=== PATIENT | female | born 1955 | race Caucasian/White ===

== ENCOUNTER 2017-10-29 05:22 | Emergency (ER) | payer OTHER, MEDICAID, SELFPAY ==
[2017-10-29 05:25] VITALS: BP 110/90; PULSE 122; RESP 20; TEMP 37.6; O2SAT 97
--- NOTE | 2017-10-29 05:33 | ED.GENADULT ---
HPI - General Adult General Chief complaint: Abdominal Pain Stated complaint: Swallowed a worm Time Seen by Provider: 10/29/17 05:25 Source: patient Mode of arrival: EMS Limitations: no limitations History of Present Illness HPI narrative: Patient is a 62-year-old female brought in by EMS for concerns of coughing up a worm. Patient states that she was sleeping and woke up coughing and noticed what she thought was a worm on her cheek that came from the back of her throat. Patient states that she has known that she has had worse for some time. She states that ?it is in my bone marrow ?she states that she could feel it in her bone marrow. Has never been treated before for this. No camping. No drinking untreated water. No hiking. Patient did bring the worm in with her. Related Data Home Medications Medication Instructions Recorded Confirmed Aripiprazole (Abilify) 5 mg PO QDAY #0 03/12/10 Bupropion Hydrochloride 150 mg PO BID #0 03/12/10 (Wellbutrin Sr) CLONAZEPAM (Klonopin) 1 mg PO #0 03/12/10 Trazodone Hydrochloride (Trazodone 50 mg PO #0 03/12/10 HCl) [MELOXICAM] 7.5 mg PO QDAY #0 03/12/10 [TOPAMAX] 100 mg PO BID #0 03/12/10 lovastatin 20 mg PO QDAYPM #0 03/12/10 [LOVAZA] 1 gr PO QDAY #0 03/17/10 Previous Rx's Medication Instructions Recorded albendazole 400 mg PO DAILY 3 Days #6 tab 10/29/17 Allergies Allergy/AdvReac Type Severity Reaction Status Date / Time INGREDIENT: NKDA - NO KNOWN Allergy Unknown Uncoded 06/22/17 12:17 DRUG ALLERGIES Review of Systems Cardiovascular Denies chest pain and Denies dyspnea Respiratory Reports cough and Denies dyspnea Gastrointestinal Gastrointestinal: Denies abdominal pain, Denies change in bowel habits, Denies constipation, Denies nausea and Denies vomiting Comments: Has not noticed any worms in her stool Genitourinary Denies hematuria Integumentary/Breasts Denies rash and Denies wounds Neurologic Denies behavioral changes Psychiatric Denies behavioral changes Hematologic/Lymphatic Denies easy bleeding and Denies easy bruising [facility] Surgical History Status post surgery (03/17/10) Status post surgery (03/17/10) Comment: No pertinent past medical or surgical history Exam Const General: cooperative, healthy appearing, comfortable, well developed and well groomed Orientation: alert, awake and oriented x3 Resp Effort & Inspection: normal respiratory effort Auscultation: clear to auscultation bilaterally Cardio Rate: regular rate Rhythm: regular rhythm GI Inspection: non-distended Palpation: soft, No firm and No tender Skin Lesions: no lesions Rashes: no rashes Neuro General: alert, awake and oriented x3 Psych Mood: anxious mood Medical Decision Making MDM Narrative Medical decision making narrative: Patient did bring a small object in with her. Was approximately 1 cm in length. Was slightly reddish in color. I did look at it under a magnifying glass however was unable to definitively say whether not this was a worm, parasite or dried mucus. Patient has a normal exam here in the emergency department. She seems very anxious about this and states that she now has proved that she has been sick. Will send her home on albendazole. She was instructed she needed to contact her primary care doctor for a follow-up. She was given the object back in a specimen cup and was told to take it with her to a primary doctor so that it could be sent to the lab for evaluation. Discharge Plan Departure Instructions: Parasites, Intestinal (Alternative Therapy) Activity Restrictions/Additional Instructions: Take the medication that you were given a prescription for today as directed. Keep the object with you and call your primary care doctor on Tuesday for a follow-up. Take this object into your primary doctor so that it could be sent to the lab for evaluation. Return to the emergency department for any new or worsening symptoms Prescriptions: New albendazole 200 mg tablet 400 mg PO DAILY 3 Days Qty: 6 RF: 0 No Action Aripiprazole (Abilify) 5 mg PO QDAY Qty: 0 RF: 0 lovastatin 20 MG tablet 20 mg PO QDAYPM Qty: 0 RF: 0 Trazodone Hydrochloride (Trazodone HCl) 50 mg PO Qty: 0 RF: 0 [MELOXICAM] 7.5 mg PO QDAY Qty: 0 RF: 0 [TOPAMAX] 100 mg PO BID Qty: 0 RF: 0 Bupropion Hydrochloride (Wellbutrin Sr) 150 mg PO BID Qty: 0 RF: 0 CLONAZEPAM (Klonopin) 1 mg PO Qty: 0 RF: 0 [LOVAZA] 1 gr PO QDAY Qty: 0 RF: 0
[2017-10-29] MEDS: ACETAMINOPHEN 325 MG TABLET 650 MG PO (07:23)
[2017-10-29 08:25] VITALS: BP 111/72; PULSE 105; RESP 20; O2SAT 96
== END 2017-10-29 08:27 | disposition home or self-care (01) ==
PROVIDERS: Emergency Provider Emergency Medicine
DX: B82.9 Intestinal parasitism, unspecified (principal)
CPT/HCPCS: 99282; 99283

== ENCOUNTER 2018-11-18 11:44 | Emergency (ER) | payer OTHER, MEDICAID, SELFPAY ==
[2018-11-18 11:55] VITALS: BP 135/116; PULSE 110; RESP 14; TEMP 36.2; O2SAT 98
--- NOTE | 2018-11-18 12:00 | PC.NURSE ---
pt has two small abrasions, less than 1/2 cm to right elbow, a small broken varicose vein/bruise approx 1 cm to inner right forearm, and a small broken varicose vein/bruise, approx 1.5 cm to left elbow
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
[2018-11-18] MEDS: LORazepam 0.5 MG TABLET 1 MG PO (13:57)
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
[2018-11-18 15:47] VITALS: BP 133/90; PULSE 74; RESP 14; O2SAT 98
== END 2018-11-18 15:51 | disposition home or self-care (01) ==
PROVIDERS: Emergency Provider Nurse Practitioner
DX: S42.024A Nondisplaced fracture of shaft of right clavicle, initial encounter for closed fracture (principal); Y04.2XXA Assault by strike against or bumped into by another person, initial encounter
CPT/HCPCS: 73000; 73070; 99282; 99283

== ENCOUNTER 2020-08-25 08:06 | Observation (INO) | payer OTHER, MEDICAID, SELFPAY ==
[2020-08-25 08:14] VITALS: BP 154/90; PULSE 104; RESP 18; TEMP 36.1; O2SAT 98; BMI 24.6
--- NOTE | 2020-08-25 08:18 | PC.NURSE ---
pt states she was able to squeeze some puss out of her finger today.
--- NOTE | 2020-08-25 08:37 | ED_ITS ---
HPI - Skin/Abscess/Foreign Bdy General Chief complaint: Skin/Abscess/Foreign Body Stated complaint: BLOOD POISONING, BIT BY SOMETHING Time Seen by Provider: 08/25/20 08:32 Source: patient Mode of arrival: Ambulatory Limitations: no limitations History of Present Illness HPI narrative: This is a 65-year-old female who comes in with concern for ?blood poisoning patient states that something bit her finger the night before last. She thinks it may have been a but but she does live with CT. Patient does not recall having a cat scratch or bite. Patient states she noticed some swelling of the finger, she had significant increase in swelling of the finger with a red streak running upper arm. Patient states she was able to express pus out of the site and the swelling had improved in her hand. She had fevers and chills overnight. She did not check her thumb temperature but states she felt very hot. She denies any chest pain or shortness of breath. She denies any nausea or vomiting. She has had a little bit of left upper quadrant discomfort for several days even before this. She denies any diarrhea or constipation. No black or bloody stools. No other GI or urinary symptoms. Patient is able to fu lly flex and extend her finger. No numbness tingling or weakness. She states she has chronic anxiety which she is currently smoking marijuana for. She smokes tobacco daily, 0-2 red drinks per day. No other recreational drugs. Patient is not on any other daily medications. Her allergies are Abilify an aspirin which she states are more side effects and not true allergies. Dr. Sabillon is her PCP. Related Data Home Medications Medication Instructions Recorded Confirmed No Known Home Medications 08/25/20 08/25/20 Allergies Allergy/AdvReac Type Severity Reaction Status Date / Time aripiprazole [From Abilify] AdvReac Severe tremors Verified 08/22/20 11:47 aspirin AdvReac Mild ringing in Verified 08/22/20 11:47 ears Review of Systems Review of Systems ROS Unobtainable: All systems reviewed & are unremarkable except as noted in HPI and below Patient History Medical History Anxiety Social History household members: family Smoking Status: Current every day smoker Tobacco: How many years used: 50 quit status: not considering quitting alcohol intake: current substance use type: former substance user (methamphetamine ), marijuana (as needed for anxiety ) and methamphetamine (former) Smoking Status: Current every day smoker alcohol intake frequency: 0-2 drinks per day Substance Use Type: does not use Exam Narrative Exam Narrative: GENERAL: Alert and oriented x three, well-nourished female in mild distress. HEENT: Head normocephalic, atraumatic, EOMI, pupils reactive, face symmetric, moist mucous membranes NECK: Supple, full range of motion CARDIOVASCULAR: Regular rate and rhythm without murmurs, rubs or gallops. RESPIRATORY: Breath sounds equal bilaterally, no wheezes rales or rhonchi. ABDOMEN: Soft, nontender. Normoactive bowel sounds all 4 quadrants. No guarding or rebound, rigidity, no mass : No CVA tenderness EXTREMITIES: Normal range of motion, no clubbing patient's right index finger is draining some serosanguineous fluid. I am unable to express additional. Lip fluid. There is a area of swelling into the dorsum of the hand with a streak running up her arm to her right inner elbow. Neurovascularly intact. Patient also has some mild lymphadenopathy in the right axilla. NEUROLOGICAL: Cranial nerves II through XII grossly intact. Moving all extremities SKIN: Warm, dry, no petechiae, no rashes or lesions other than described above. Initial Vital Signs Initial Vital Signs: Vital Signs Temperature 96.9 F L 08/25/20 08:14 Pulse Rate 104 H 08/25/20 08:14 Respiratory Rate 18 08/25/20 08:14 Blood Pressure 154/90 H 08/25/20 08:14 Pulse Oximetry 98 08/25/20 08:14 Course Orders Ordered: ED Orders 08/25/20 11:25 COVID19 - ADMIT (REHAB LIAISON swab/PCR) Stat Discontinued Medications Acetaminophen (Acetaminophen 325 Mg Tablet) 650 mg PO NOW ONE Stop: 08/25/20 09:04 Last Admin: 08/25/20 10:02 Dose: 650 mg Documented by: BTONER Diphtheria/Tetanus/Acell Pertussis (Tet,Diph,Pertuss(Acell),Vac/Pf 0.5 Ml Syringe) 0.5 ml IM .ONCE ONE Stop: 08/25/20 09:44 Last Admin: 08/25/20 10:31 Dose: 0.5 ml Documented by: HADLEY Ampicillin Sodium/Sulbactam (Sodium 3 gm/ Sodium Chloride) 100 mls @ 100 mls/hr IV NOW ONE Stop: 08/25/20 08:59 Last Infusion: 08/25/20 11:09 Dose: 100 mls/hr Documented by: Admin: 08/25/20 10:02 Dose: 100 mls/hr Documented by: SIERRAONER Consultations Consultation #1: Dr. Santana, accepts. Asks for othopedics consulation. Time: 11:05 Consultation #2: Dr. Ramachandran from orthopedic surgery, will see patient later today. Does ask to keep patient NPO status. Vital Signs Vital signs: Vital Signs - 8 hr 08/25/20 08:14 Temperature 96.9 F L Pulse Rate 104 H Respiratory Rate 18 Blood Pressure 154/90 H Pulse Oximetry 98 MDM - Skin/Abscess/Foreign Bdy Lab Data Attestation: I reviewed the patient's lab results. Result diagrams: 08/25/20 09:30 08/25/20 09:30 Labs: Lab Results 08/25/20 08/25/20 08/25/20 Range/Units 09:30 09:30 09:30 WBC 6.4 (4.5-11.0) X10^3/uL RBC 4.46 (4.0-5.2) X10^6/uL Hgb 13.5 (12.0-16.0) g/dL Hct 40.6 (36-46) % MCV 91.0 (80-100) fL MCH 30.2 (26-34) PG MCHC 33.2 (30-36) % RDW 13.5 (11.6-14.8) % Plt Count 257 (150-400) X10^3/uL Neut % (Auto) 58.8 (50-75) % Lymph % (Auto) 31.1 (25-40) % [place] % (Auto) 7.4 (3-14) % Eos % (Auto) 1.6 L (2-4) % Baso % (Auto) 1.1 (0-2) % Neut # (Auto) 3800 (0161-7570) /uL Lymph # (Auto) 2000 (9052-0022) /uL [place] # (Auto) 500 (0-900) /uL Eos # (Auto) 100 (0-450) /uL Baso # (Auto) 100 (0-100) /uL Sodium 139 (137-145) mmol/L Potassium 4.0 (3.4-5.1) mmol/L Chloride 108 H (98-107) mmol/L Carbon Dioxide 25 (22-32) mmol/L BUN 15 (7-17) mg/dL Creatinine 0.46 L (0.52-1.04) mg/dL Estimated GFR > 60.0 (>60) mL/min BUN/Creatinine Ratio 32.6 H (6-22) Glucose 95 (80-110) mg/dL Lactate 0.6 L (0.7-2.1) mmol/L Calcium 9.4 (8.4-10.2) mg/dL Total Bilirubin 0.7 (0.2-1.3) mg/dL AST 20 (14-36) IU/L ALT 14 (<35) IU/L Alkaline Phosphatase 93 (38-126) U/L Total Protein 7.0 (6.3-8.2) g/dL Albumin 4.1 (3.5-5.0) g/dL Globulin 2.9 (1.7-4.1) g/dL Albumin/Globulin Ratio 1.4 (1.0-2.8) Lipase 33 (23-300) U/L Procalcitonin 0.05 (<0.5) ng/mL Imaging Data Extremity x-ray #1: Radiologist's Impression: [address] [id number] ReportSigned Patient: Rene Gilliland JMR#: [id number]: [id number]:[id number]/Sex: 65 / FDate of Service: 08/25/20Loc: EDAccession Number: [id number] Procedure: XR finger RT min 2V Ordering Provider: Dilia Ferraro D.O. PROCEDURE: XR FINGER RT MIN 2V INDICATIONS: index finger, draining abscess with cellultis TECHNIQUE: AP hand, 2 views of the 2nd finger(s) acquired. COMPARISON: None. FINDINGS: Bones: No fractures or dislocations. 2nd distal interphalangeal joint osteoarthritic changes are seen. No suspicious bony lesions. No bony erosive changes. Soft tissues: No suspicious soft tissue calcifications. IMPRESSION: No acute 2nd finger fracture or dislocation. No radiographic evidence of osteomyelitis. 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 Dictated by: Laith Knapp M.D. on 08/25/2020 at 9:31 Approved by: Laith Knapp M.D. on 08/25/2020 at 9:31 [facility] Narrative Medical decision making narrative: A 65-year-old female comes in with concern for bite on her finger. Patient does have cats in her household so do have some concern that it could be related to this although she does not appreciate any bi kristina or scratches recently. Patient does have a red streak running up her extremity to her elbow and is complaining a little a bit of lymphadenopathy. She is afebrile appear septic. The area does appear to be draining well and I am unable to takes disc express any additional purulent fluid. Patient was started on IV antibiotics, orthopedic surgery was consulted and she has accepted by Internal Medicine for hospitalization. Patient is agreeable to hospitalization when asked specifically. Discharge Plan Departure Patient Disposition: Admitted as Observation Clinical Impression: Cellulitis of arm, right, Abscess of finger, right Admit Date/Time: 08/25/20 11:09 Admit Provider: Khadar Santana
--- NOTE | 2020-08-25 08:57 | DI.RAD.S_ITS ---
PROCEDURE: XR FINGER RT MIN 2V INDICATIONS: index finger, draining abscess with cellultis TECHNIQUE: AP hand, 2 views of the 2nd finger(s) acquired. COMPARISON: None. FINDINGS: Bones: No fractures or dislocations. 2nd distal interphalangeal joint osteoarthritic changes are seen. No suspicious bony lesions. No bony erosive changes. Soft tissues: No suspicious soft tissue calcifications. IMPRESSION: No acute 2nd finger fracture or dislocation. No radiographic evidence of osteomyelitis. 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 Dictated by: Laith Knapp M.D. on 08/25/2020 at 9:31 Approved by: Laith Knapp M.D. on 08/25/2020 at 9:31
[2020-08-25 09:38] LABS: Add Manual Diff / Slide Review NO; Basophils Absolute Auto 100 /uL (0-100); Basophils Percent Auto 1.1 % (0-2); Eosinophils Absolute Auto 100 /uL (0-450); Eosinophils Percent Auto 1.6 % (2-4); Hematocrit 40.6 % (36-46); Hemoglobin 13.5 g/dL (12.0-16.0); Lymphocytes Absolute Auto 2000 /uL (1100-4500); Lymphocytes Percent Auto 31.1 % (25-40); Mean Corpuscular HGB Conc 33.2 % (30-36); Mean Corpuscular Hemoglobin 30.2 PG (26-34); Monocytes Absolute Auto 500 /uL (0-900); Monocytes Percent Auto 7.4 % (3-14); Neutrophils Absolute Auto 3800 /uL (1500-7000); Neutrophils Percent Auto 58.8 % (50-75); Platelet Count 257 X10^3/uL (150-400); Red Blood Cell Count 4.46 X10^6/uL (4.0-5.2); Red Cell Distribution Width 13.5 % (11.6-14.8); White Blood Cell Count 6.4 X10^3/uL (4.5-11.0)
[2020-08-25 09:49] LABS: Lactate (Lactic Acid) 0.6 mmol/L (0.7-2.1)
[2020-08-25 09:50] LABS: Alanine Aminotransferase 14 IU/L (<35); Albumin 4.1 g/dL (3.5-5.0); Albumin Globulin Ratio 1.4 (1.0-2.8); Alkaline Phosphatase 93 U/L (38-126); Aspartate Aminotransferase 20 IU/L (14-36); BUN Creatinine Ratio 32.6 (6-22); Bilirubin Total 0.7 mg/dL (0.2-1.3); Blood Urea Nitrogen 15 mg/dL (7-17); Calcium 9.4 mg/dL (8.4-10.2); Carbon Dioxide 25 mmol/L (22-32); Chloride 108 mmol/L (98-107); Estimated Glomerular Filt Rate > 60.0 mL/min (>60); Globulin 2.9 g/dL (1.7-4.1); Glucose 95 mg/dL (80-110); HEMOLYSIS < 15 (0-50); Lipase 33 U/L (23-300); Sodium 139 mmol/L (137-145)
[2020-08-25] MEDS: ACETAMINOPHEN 325 MG TABLET 650 MG PO (10:02)
[2020-08-25] MEDS: AMPICILLIN/SULBACTAM 3 GM 3 GM in SODIUM CHLORIDE 0.9% 100 ML IV (10:02)
[2020-08-25 10:06] LABS: Procalcitonin 0.05 ng/mL (<0.5)
[2020-08-25] MEDS: TET,DIPH,PERTUSS(ACELL),VAC/PF 0.5 ML SYRINGE IM (10:31)
[2020-08-25 11:46] VITALS: BP 140/77; PULSE 77; RESP 18; O2SAT 100
[2020-08-25 11:52] VITALS: BMI 22.6
--- NOTE | 2020-08-25 12:07 | PC.NURSE ---
Admit Note Arrived to room 225 via wheelchair at 1145. Droplet/contact precautions in place for pending COVID swab results. Alert and oriented x3. Independent in room. Erythema and swelling to right index finger, no drainage noted at this time, faint pink line to forearm ending at elbow. Denies pain at this time as long as nothing touches it. NPO pending ortho. Decilnes to lock up valuables in safe - see admission assessment for details. Oriented to room and to tv/bed/call light controls.
--- NOTE | 2020-08-25 12:20 | CM.MNRNOTE ---
Addendum entered by Samira Melissa R.N. 08/25/20 12:38: PT ESCORTED BACK TO HER ROOM BY EREN RODRIGUEZ AND THEN SHORTLY THEREAFTER CAME OUT AND SAID I NEED TO GO AND EAT SOMETHING AND GONNA WITHDRAWL FROM MULTIPLE THINGS SIGNED AMA FORM AFTER DECLINING NICOTINE PATCH- ALLOWED REMOVAL OF IV ACCESS AND INFORMED GRIT REMOVAL OPERATOR Original Note: pt came out room declaring she needed to go out to parking lot to find her brother and tell him she was being admitted to hospital- i explained that this was not our policy and she would not be allowed out doors unaccompanied and reminded her of no smoking policy- she returned to room at this time- NPO STATUS remains until seen by ortho
[2020-08-25 12:45] LABS: COVID19 - ADMIT (NP swab/PCR) Negative (Negative)
== END 2020-08-25 12:40 | disposition left against medical advice (07) ==
LOC: ED 11:06 → AC 11:10
PROVIDERS: Admitting Provider Internal Medicine; Emergency Provider Emergency Medicine; PCP Family Medicine; Referring Provider Emergency Medicine; Visit Provider Internal Medicine
DX: L03.011 Cellulitis of right finger (principal); Z53.29 Procedure and treatment not carried out because of patient's decision for other reasons; F17.210 Nicotine dependence, cigarettes, uncomplicated; Z20.822 Contact with and (suspected) exposure to COVID-19; Z23 Encounter for immunization
CPT/HCPCS: 36415; 73140; 80053; 83605; 83690; 84145; 85025; 87040; 87070; 87077; 87147; 87186; 87205; 87635; 90471; 96365; 99284; C9803; G0378; 90715; J0295

== ENCOUNTER 2021-02-25 12:59 | Emergency (ER) | payer OTHER, MEDICAID, SELFPAY ==
[2021-02-25] VITALS (9 sets, daily range): BP systolic 145–176; BP diastolic 70–98; PULSE 64–107; RESP 18–98; TEMP 36.9; O2SAT 18–97; BMI 23.3
--- NOTE | 2021-02-25 13:24 | DI.RAD.S_ITS ---
PROCEDURE: XR CHEST 1V INDICATIONS: chest pain TECHNIQUE: One view of the chest was acquired. COMPARISON: None. FINDINGS: Surgical changes and devices: None. Lungs and pleura: Lungs are clear. No pleural effusions or pneumothorax. Mediastinum: Mediastinal contours appear normal. Heart size is normal. Bones and chest wall: No suspicious bony lesions. Overlying soft tissues appear unremarkable. IMPRESSION: No evidence acute pulmonary process. Dictated by: Cesar Rasheed M.D. on 02/25/2021 at 13:40 Approved by: Cesar Rasheed M.D. on 02/25/2021 at 13:41
--- NOTE | 2021-02-25 13:48 | ED.CHESTPAIN ---
HPI - Chest Pain General Chief Complaint: Chest Pain Stated Complaint: Irregular heart rate began this am Time Seen by Provider: 02/25/21 13:48 Source: patient Mode of arrival: Ambulatory Limitations: no limitations History of Present Illness HPI narrative: Patient is a 65-year-old female who is sent over from her primary doctor's office for evaluation of palpitations. She states that yesterday she did vape a significantly more THC than which she normally does. When she woke up this morning she felt like her heart was beating fast. She did have some shortness of breath. Some left-sided chest pressure. Went to her primary doctor's office. She stated that the symptoms have improved somewhat however she was sent to the emergency department for evaluation Related Data Home Medications Medication Instructions Recorded Confirmed Aripiprazole (Abilify) 5 mg PO QDAY #0 03/12/10 Bupropion Hydrochloride 150 mg PO BID #0 03/12/10 (Wellbutrin Sr) CLONAZEPAM (Klonopin) 1 mg PO #0 03/12/10 Trazodone Hydrochloride (Trazodone 50 mg PO #0 03/12/10 HCl) [MELOXICAM] 7.5 mg PO QDAY #0 03/12/10 [TOPAMAX] 100 mg PO BID #0 03/12/10 lovastatin 20 mg tablet 20 mg PO QDAYPM #0 03/12/10 [LOVAZA] 1 gr PO QDAY #0 03/17/10 No Known Home Medications 08/25/20 08/25/20 Allergies Allergy/AdvReac Type Severity Reaction Status Date / Time aripiprazole [From Abilify] AdvReac Severe tremors Verified 02/25/21 13:11 aspirin AdvReac Mild ringing in Verified 02/25/21 13:11 ears INGREDIENT: NKDA - NO KNOWN Allergy Unknown Uncoded 08/26/20 13:12 DRUG ALLERGIES Review of Systems Constitutional Constitutional: Denies fever(s) and Denies headache(s) ENT Ears, Nose, Mouth, and Throat: Denies headache(s) Cardiovascular Cardiovascular: Reports as per HPI, Reports system reviewed and no additional complaints, except as documented and Denies dyspnea Respiratory Respiratory: Denies cough and Denies dyspnea Gastrointestinal Gastrointestinal: Reports system reviewed and no additional complaints, except as documented Musculoskeletal Musculoskeletal: Reports system reviewed and no additional complaints, except as documented Integumentary/Breasts Skin/Breast: Reports system reviewed and no additional complaints, except as documented Neurologic Neurologic: Denies headache(s) Hematologic/Lymphatic On Anticoagulants: No Allergic/Immunologic Allergic/Immunologic: Reports system reviewed and no additional complaints, except as documented Patient History Medical History Anxiety Chronic back pain Colitis (~1983) Drug abuse, amphetamine type Fractures History of bipolar disorder Hyperthyroidism (~1982) PTSD (post-traumatic stress disorder) Thyroid nodule (~2019) Surgical History (Updated 09/22/20 @ 21:00 by Elizabeth Valencia) Anesthesia Status post surgery (03/17/10) Status post surgery (03/17/10) Social History household members: family Smoking Status: Current every day smoker Tobacco: How many years used: 50 quit status: not considering quitting alcohol intake: current substance use type: former substance user (methamphetamine ), marijuana (as needed for anxiety ) and methamphetamine (former) Smoking Status: Current every day smoker tobacco type: cigarettes and vaping alcohol intake frequency: a few times a month Substance Use Type: marijuana Exam Initial Vital Signs Initial Vital Signs: Vital Signs Temperature 98.4 F 02/25/21 13:10 Pulse Rate 107 H 02/25/21 13:10 Respiratory Rate 18 02/25/21 13:10 Blood Pressure 172/90 H 02/25/21 13:10 Pulse Oximetry 97 02/25/21 13:10 Const General: cooperative and well developed Limitations: mental status not altered HENMT Head: normal to inspection and normocephalic Chest Chest: No crepitus and No tenderness Resp Effort & Inspection: normal respiratory effort, not labored and not tachypneic Auscultation: clear to auscultation bilaterally Cardio Rate: tachycardic Rhythm: regular rhythm GI Inspection: non-distended Palpation: soft and No tender Skin General: no rashes or lesions noted Neuro General: patient alert, patient awake and moves all extremities Extrem General: normal to inspection, capillary refill normal and No edema Psych Appearance: grossly normal and well kempt Course Orders Ordered: ED Orders 02/25/21 13:21 Consult to BOTTLE WASHER MACHINE - District Resource Officer Stat 02/25/21 13:24 XR chest 1V Stat EKG-12 Lead Stat 02/25/21 13:50 Complete Blood Count AUTO DIFF Stat Comprehensive Metabolic Panel Stat Lipase Stat Magnesium Stat Troponin & CK Cardiac Panel Stat 02/25/21 13:53 Ethanol (ETOH) Stat 02/25/21 15:36 Troponin I Stat 02/25/21 19:19 Urine Drug Screen, Rapid Stat Vital Signs Vital signs: Vital Signs - 8 hr 02/25/21 13:10 02/25/21 14:54 02/25/21 15:00 Temperature 98.4 F Pulse Rate 107 H 76 79 Respiratory Rate 18 22 26 H Blood Pressure 172/90 H 145/72 H Pulse Oximetry 97 94 92 02/25/21 15:30 02/25/21 16:00 02/25/21 17:00 Temperature Pulse Rate 74 89 90 Respiratory Rate 21 22 18 Blood Pressure 147/79 H 163/79 H 160/70 H Pulse Oximetry 95 96 97 02/25/21 17:52 02/25/21 18:01 02/25/21 19:04 Temperature Pulse Rate 96 H 64 100 H Respiratory Rate 98 H 18 18 Blood Pressure 163/79 H 149/96 H 176/98 H Pulse Oximetry 18 L 97 97 MDM - Chest Pain Lab Data Attestation: I reviewed the patient's lab results. Result diagrams: 02/25/21 13:50 02/25/21 13:50 Labs: Lab Results 02/25/21 02/25/21 02/25/21 Range/Units 13:50 13:50 13:53 WBC 7.5 (4.5-11.0) X10^3/uL RBC 4.50 (4.0-5.2) X10^6/uL Hgb 14.1 (12.0-16.0) g/dL Hct 40.7 (36-46) % MCV 90.5 (80-100) fL MCH 31.4 (26-34) PG MCHC 34.8 (30-36) % RDW 13.5 (11.6-14.8) % Plt Count 331 (150-400) X10^3/uL Neut % (Auto) 68.3 (50-75) % Lymph % (Auto) 24.2 L (25-40) % [place] % (Auto) 5.6 (3-14) % Eos % (Auto) 0.4 L (2-4) % Baso % (Auto) 1.5 (0-2) % Neut # (Auto) 5100 (0914-0939) /uL Lymph # (Auto) 1800 (9618-0890) /uL [place] # (Auto) 400 (0-900) /uL Eos # (Auto) 0 (0-450) /uL Baso # (Auto) 100 (0-100) /uL Sodium 140 (137-145) mmol/L Potassium 3.9 (3.4-5.1) mmol/L Chloride 109 H (98-107) mmol/L Carbon Dioxide 25 (22-32) mmol/L BUN 14 (7-17) mg/dL Creatinine 0.53 (0.52-1.04) mg/dL Estimated GFR > 60.0 (>60) mL/min BUN/Creatinine Ratio 26.4 H (6-22) Glucose 96 (80-110) mg/dL Calcium 9.3 (8.4-10.2) mg/dL Magnesium 1.9 (1.6-2.3) mg/dL Total Bilirubin 0.9 (0.2-1.3) mg/dL AST 27 (14-36) IU/L ALT 17 (<35) IU/L Alkaline Phosphatase 88 (38-126) U/L Total Creatine Kinase 233 H (30-135) U/L CK-MB (CK-2) 5.42 H (<2.37) ng/mL CK-MB (CK-2) Rel Index 2.3 (1.5-5.0) % Troponin I 0.013 (0.01-0.034) ng/mL Total Protein 7.3 (6.3-8.2) g/dL Albumin 4.6 (3.5-5.0) g/dL Globulin 2.7 (1.7-4.1) g/dL Albumin/Globulin Ratio 1.7 (1.0-2.8) Lipase 35 (23-300) U/L U Opiates 300ng/mL cut Ur Oxycodone Screen Urine Methadone Screen Ur Barbiturates Screen U Tricyclic Antidepress Ur Phencyclidine Scrn Ur Amphetamines Screen U Methamphetamines Scrn Ur MDMA Scrn (Ecstasy) U Benzodiazepines Scrn Urine Cocaine Screen U Marijuana (THC) Screen Ethyl Alcohol < 10 ( - 10) mg/dL 02/25/21 02/25/21 Range/Units 15:36 19:12 WBC (4.5-11.0) X10^3/uL RBC (4.0-5.2) X10^6/uL Hgb (12.0-16.0) g/dL Hct (36-46) % MCV (80-100) fL MCH (26-34) PG MCHC (30-36) % RDW (11.6-14.8) % Plt Count (150-400) X10^3/uL Neut % (Auto) (50-75) % Lymph % (Auto) (25-40) % [place] % (Auto) (3-14) % Eos % (Auto) (2-4) % Baso % (Auto) (0-2) % Neut # (Auto) (0625-7854) /uL Lymph # (Auto) (1850-8588) /uL [place] # (Auto) (0-900) /uL Eos # (Auto) (0-450) /uL Baso # (Auto) (0-100) /uL Sodium (137-145) mmol/L Potassium (3.4-5.1) mmol/L Chloride (98-107) mmol/L Carbon Dioxide (22-32) mmol/L BUN (7-17) mg/dL Creatinine (0.52-1.04) mg/dL Estimated GFR (>60) mL/min BUN/Creatinine Ratio (6-22) Glucose (80-110) mg/dL Calcium (8.4-10.2) mg/dL Magnesium (1.6-2.3) mg/dL Total Bilirubin (0.2-1.3) mg/dL AST (14-36) IU/L ALT (<35) IU/L Alkaline Phosphatase (38-126) U/L Total Creatine Kinase (30-135) U/L CK-MB (CK-2) (<2.37) ng/mL CK-MB (CK-2) Rel Index (1.5-5.0) % Troponin I < 0.012 (0.01-0.034) ng/mL Total Protein (6.3-8.2) g/dL Albumin (3.5-5.0) g/dL Globulin (1.7-4.1) g/dL Albumin/Globulin Ratio (1.0-2.8) Lipase (23-300) U/L U Opiates 300ng/mL cut Cancelled Ur Oxycodone Screen Cancelled Urine Methadone Screen Cancelled Ur Barbiturates Screen Cancelled U Tricyclic Antidepress Cancelled Ur Phencyclidine Scrn Cancelled Ur Amphetamines Screen Cancelled U Methamphetamines Scrn Cancelled Ur MDMA Scrn (Ecstasy) Cancelled U Benzodiazepines Scrn Cancelled Urine Cocaine Screen Cancelled U Marijuana (THC) Screen Cancelled Ethyl Alcohol ( - 10) mg/dL Imaging Data Chest x-ray: Radiologist's Impression: Launch?[address] [address] XRay Report Signed Patient: Rene Gilliland MR#: [id number] : 1955 Acct:[id number] Age/Sex: 65 / F Date of Service: 02/25/21 Loc: ED Accession Number: [id number] ?? Procedure: XR chest 1V Ordering Provider: Dyllan Mathis D.O. PROCEDURE:? XR CHEST 1V ? INDICATIONS:? chest pain ? TECHNIQUE:? One view of the chest was acquired.? ? COMPARISON:? None. ? FINDINGS:? ? Surgical changes and devices:? None.? ? Lungs and pleura:? Lungs are clear.? No pleural effusions or pneumothorax.? ? Mediastinum:? Mediastinal contours appear normal.? Heart size is normal.? ? Bones and chest wall:? No suspicious bony lesions.? Overlying soft tissues appear unremarkable.? ? IMPRESSION:? No evidence acute pulmonary process. ? ? ? Dictated by: Cesar Rasheed M.D. on 02/25/2021 at 13:40 ? ? Approved by: Cesar Rasheed M.D. on 02/25/2021 at 13:41 ECG Data Attestation: I personally reviewed and interpreted this ECG as follows: Interpretation: Sinus tachycardia Ventricular rate 105 Normal axis Normal QRS Normal QTC No ST T wave changes MDM Narrative Medical decision making narrative: Patient's workup here in the emergency department is unremarkable. She did have sinus tachycardia on her EKG but this resolved. Chest x-ray is unremarkable. Labs are unremarkable. I do suspect that presenting symptoms today are related to the amount of THC that she smoked yesterday. She did make comments to nursing staff that she has had suicidal thoughts in the past. Patient was evaluated by social Work. Please see their note for a complete description of their conversations. They were able to secure the patient a hotel voucher for this evening. Patient is safe for discharge. She was given return precautions. She expressed understanding agreement. Discharge Plan Departure Patient Disposition: Home Clinical Impression: Palpitations Instructions: DI for Arrhythmias Activity Restrictions/Additional Instructions: I recommend that you continue to take all of your medications as directed. Contact your primary doctor for a follow-up. Return to the emergency department for any new or worsening symptoms. Prescriptions: No Action Aripiprazole (Abilify) 5 mg PO QDAY Qty: 0 0RF lovastatin 20 MG tablet 20 mg PO QDAYPM Qty: 0 0RF Trazodone Hydrochloride (Trazodone HCl) 50 mg PO Qty: 0 0RF [MELOXICAM] 7.5 mg PO QDAY Qty: 0 0RF [TOPAMAX] 100 mg PO BID Qty: 0 0RF Bupropion Hydrochloride (Wellbutrin Sr) 150 mg PO BID Qty: 0 0RF CLONAZEPAM (Klonopin) 1 mg PO Qty: 0 0RF [LOVAZA] 1 gr PO QDAY Qty: 0 0RF No Known Home Medications 0RF Referrals: New Sabillon MD [Primary Care Provider] -
[2021-02-25 13:56] LABS: Add Manual Diff / Slide Review NO; Basophils Absolute Auto 100 /uL (0-100); Basophils Percent Auto 1.5 % (0-2); Eosinophils Absolute Auto 0 /uL (0-450); Eosinophils Percent Auto 0.4 % (2-4); Hematocrit 40.7 % (36-46); Hemoglobin 14.1 g/dL (12.0-16.0); Lymphocytes Absolute Auto 1800 /uL (1100-4500); Lymphocytes Percent Auto 24.2 % (25-40); Mean Corpuscular HGB Conc 34.8 % (30-36); Mean Corpuscular Hemoglobin 31.4 PG (26-34); Mean Corpuscular Volume 90.5 fL (80-100); Monocytes Absolute Auto 400 /uL (0-900); Monocytes Percent Auto 5.6 % (3-14); Neutrophils Absolute Auto 5100 /uL (1500-7000); Neutrophils Percent Auto 68.3 % (50-75); Platelet Count 331 X10^3/uL (150-400); Red Cell Distribution Width 13.5 % (11.6-14.8); White Blood Cell Count 7.5 X10^3/uL (4.5-11.0)
[2021-02-25 14:14] LABS: Alanine Aminotransferase 17 IU/L (<35); Albumin 4.6 g/dL (3.5-5.0); Albumin Globulin Ratio 1.7 (1.0-2.8); Alkaline Phosphatase 88 U/L (38-126); Aspartate Aminotransferase 27 IU/L (14-36); BUN Creatinine Ratio 26.4 (6-22); Bilirubin Total 0.9 mg/dL (0.2-1.3); Blood Urea Nitrogen 14 mg/dL (7-17); Calcium 9.3 mg/dL (8.4-10.2); Carbon Dioxide 25 mmol/L (22-32); Chloride 109 mmol/L (98-107); Creatine Kinase 233 U/L (30-135); Estimated Glomerular Filt Rate > 60.0 mL/min (>60); Globulin 2.7 g/dL (1.7-4.1); Glucose 96 mg/dL (80-110); HEMOLYSIS < 15 (0-50); Lipase 35 U/L (23-300); Magnesium 1.9 mg/dL (1.6-2.3); Potassium 3.9 mmol/L (3.4-5.1); Sodium 140 mmol/L (137-145); Total Protein 7.3 g/dL (6.3-8.2)
[2021-02-25 14:26] LABS: Troponin I 0.013 ng/mL (0.01-0.034)
[2021-02-25 14:29] LABS: CKMB % Relative Index 2.3 % (1.5-5.0); Creatine Kinase MB 5.42 ng/mL (<2.37)
[2021-02-25 15:47] LABS: Ethanol (ETOH) < 10 mg/dL
[2021-02-25 16:19] LABS: Troponin I < 0.012 ng/mL (0.01-0.034)
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
== END 2021-02-25 19:50 | disposition home or self-care (01) ==
PROVIDERS: Emergency Provider Emergency Medicine; PCP Family Medicine
DX: R00.2 Palpitations (principal); R00.0 Tachycardia, unspecified
CPT/HCPCS: 36415; 71045; 80053; 80320; 82550; 82553; 83690; 83735; 84484; 85025; 93005; 93010; 99283; 99284

== ENCOUNTER → 2021-06-08 15:26 | Outpatient (CLI) | payer OTHER, MEDICAID, SELFPAY ==
--- NOTE | 2021-06-08 15:28 | DI.RAD.S_ITS ---
PROCEDURE: XR FOOT RT MIN 3V INDICATIONS: possible broken toes and foot pain TECHNIQUE: 3 views of the foot were acquired. COMPARISON: None. FINDINGS: Bones: Linear lucency at the 3rd digit proximal phalangeal shaft. No dislocations. No suspicious bony lesions. Soft tissues: No tibiotalar joint effusion. Achilles tendon appears normal. IMPRESSION: Suspect nondisplaced 3rd digit proximal phalangeal fracture. Follow-up radiographs in 10-14 days would be helpful. Dictated by: Yohan Moore M.D. on 06/08/2021 at 15:59 Approved by: Yohan Moore M.D. on 06/08/2021 at 16:01
== END ==
PROVIDERS: PCP Family Medicine; Referring Provider Student in an Organized Health Care Education/Training Program; Visit Provider Student in an Organized Health Care Education/Training Program
DX: M79.671 Pain in right foot (principal); M79.674 Pain in right toe(s)
CPT/HCPCS: 73630

== ENCOUNTER 2022-07-07 15:07 | Emergency (ER) | payer MEDICARE, MEDICAID, OTHER, SELFPAY ==
[2022-07-07] VITALS (14 sets, daily range): BP systolic 126–153; BP diastolic 68–110; PULSE 120–132; RESP 20–27; TEMP 37; O2SAT 93–99; BMI 32.3
--- NOTE | 2022-07-07 15:20 | DI.RAD.S_ITS ---
PROCEDURE: XR CHEST 1V INDICATIONS: cough, SOB TECHNIQUE: One view of the chest was acquired. COMPARISON: [facility], CR, XR CHEST 1V, 02/25/2021, 13:25. FINDINGS: Surgical changes and devices: None. Lungs and pleura: Slight hazy opacity is present in the right base. There is persistent blunting of the costophrenic angles. Mediastinum: Mediastinal contours appear normal. Heart size is mildly prominent. Bones and chest wall: No suspicious bony lesions. Overlying soft tissues appear unremarkable. IMPRESSION: Slightly hazy opacity in the right base which may represent a minimal effusion versus developing pneumonia. Dictated by: Ashleigh Barkley M.D. on 07/07/2022 at 15:54 Approved by: Ashleigh Barkley M.D. on 07/07/2022 at 15:56
--- NOTE | 2022-07-07 15:41 | ED.NAVMDI ---
HPI - Nausea/Vomiting/Diarrhea General Chief complaint: Nausea/Vomiting/Diarrhea Stated complaint: allergic reaction/lung issues/diarreah Time Seen by Provider: 07/07/22 15:11 Source: patient History of Present Illness HPI Narrative: 67F smoker with history of hypertension, bipolar, restless leg, substance abuse, schizophrenia presents with multiple complaints that have been giving her trouble for many weeks if not months. She is a poor historian on the whole but states that her primary complaint is of mucus-like stool that has been bothering her for many weeks since she ate some bad food and is convinced that she has a worm and frequently mentions her concern about Giardia. She denies recent travel or use of antibiotics. She denies exposure to other sick persons. She denies abdominal pain or blood in her stool. She is not dizzy nor weak or lightheaded. She denies any runny nose, sneezing or sore throat. She does admit to a cough occasionally productive of sputum for many weeks if not months. Related Data Previous Rx's Medication Instructions Recorded fluticasone propionate 50 1 spray intranasal BID #16 grams 04/02/21 mcg/actuation nasal spray,suspension atorvastatin 20 mg tablet (Lipitor) 20 mg PO QPM #90 tabs 05/11/21 diazepam 5 mg tablet (Valium) 5 mg PO BID PRN anxiety #40 tabs 05/14/21 meloxicam 7.5 mg tablet 7.5 mg PO DAILY PRN pain, moderate 06/08/21 #30 tabs metoprolol succinate 50 mg 50 mg PO DAILY #60 tabs 06/08/21 tablet,extended release 24 hr furosemide 40 mg tablet (Lasix) 40 mg PO DAILY #7 tabs 07/07/22 permethrin 5 % topical cream 1 applic topical Q14D 2 doses #60 07/07/22 grams Allergies Allergy/AdvReac Type Severity Reaction Status Date / Time aripiprazole [From [facility]] AdvReac Severe tremors Verified 07/07/22 15:42 aspirin AdvReac Mild ringing in Verified 07/07/22 15:42 ears Review of Systems Review of Systems Narrative: GENERAL: Denies chills, fatigue, malaise, fever, sweats. HEENT: Denies sinus pain, ear pain, sore throat, difficulty swallowing, dizziness. RESPIRATORY: See HPI CARDIOVASCULAR: Denies chest pain, palpitations, orthopnea, edema, GASTROINTESTINAL: See HPI : Denies dysuria, frequency, incontinence, hematuria, urinary retention. MUSCULOSKELETAL: denies weakness, joint pain, or bony pain SKIN: Denies rash, skin lesions, or other NEUROLOGIC: Denies weakness, headache, numbness, change in speech, confusion, seizures, incoordination. PSYCHIATRIC: No concerning psychosocial issues. 12 point review of systems is negative except for those stated above Patient History Medical History Anxiety Chronic back pain Colitis (~1983) Drug abuse, amphetamine type Fractures History of bipolar disorder Hypertension Hyperthyroidism (~1982) PTSD (post-traumatic stress disorder) Thyroid nodule (~2019) Surgical History Anesthesia Status post surgery (03/17/10) Status post surgery (03/17/10) Social History household members: family Smoking Status: Current every day smoker Tobacco: How many years used: 50 quit status: not considering quitting alcohol intake: current substance use type: former substance user (methamphetamine ), marijuana (as needed for anxiety ) and methamphetamine (former) Smoking Status: Current every day smoker tobacco type: cigarettes and vaping alcohol intake frequency: a few times a month Substance Use Type: marijuana Exam Narrative Exam Narrative: GENERAL: [67] year old patient appears stated age. Well-developed patient, in mild distress. Pressured speech, answering questions appropriately, alert and oriented x3, GCS 15 HEAD: Atraumatic. Normocephalic. EYES: Pupils equal round and reactive. Extraocular motions intact. No scleral icterus. No injection or drainage. ENT: Nose without bleeding, purulent drainage. Throat without erythema, tonsillar hypertrophy or exudate. Airway patent. NECK: Trachea midline. Non tender CARDIOVASCULAR: Regular rate and rhythm without murmurs, gallops, or rubs. RESPIRATORY: Clear to auscultation. Breath sounds equal bilaterally. No wheezes, rales, or rhonchi. GASTROINTESTINAL: Abdomen soft, non-tender, nondistended. EXTREMITIES: No edema or joint tenderness. BACK: Nontender without deformity or crepitance. No flank tenderness. NEURO: AOx3. SKIN: No rash or erythema of visible areas Initial Vital Signs Initial Vital Signs: Vital Signs Temperature 98.6 F 07/07/22 15:22 Pulse Rate 132 H 07/07/22 15:22 Respiratory Rate 20 07/07/22 15:22 Blood Pressure 145/110 H 07/07/22 15:22 Pulse Oximetry 97 07/07/22 15:22 Oxygen Delivery Method Room Air 07/07/22 15:22 Course Orders Ordered: Discontinued Medications Sodium Chloride (Normal Saline 0.9%) 1,000 mls @ 1,000 mls/hr IV BOLUS ONE Stop: 07/07/22 16:19 Last Infusion: 07/07/22 17:43 Dose: 0 mls/hr Documented By: Admin: 07/07/22 16:05 Dose: 1,000 mls/hr Documented By: ALBA Vital Signs Vital signs: Vital Signs - 8 hr 07/07/22 15:22 07/07/22 15:24 07/07/22 16:05 Temperature 98.6 F Pulse Rate 132 H Respiratory Rate 20 Blood Pressure 145/110 H 153/89 H Pulse Oximetry 97 97 Oxygen Delivery Method Room Air Room Air 07/07/22 16:05 07/07/22 16:30 07/07/22 16:32 Temperature Pulse Rate 128 H 124 H Respiratory Rate Blood Pressure 126/94 H Pulse Oximetry 96 95 Oxygen Delivery Method Room Air 07/07/22 16:32 07/07/22 17:00 07/07/22 17:30 Temperature Pulse Rate 124 H 126 H 123 H Respiratory Rate 20 Blood Pressure Pulse Oximetry 96 96 96 Oxygen Delivery Method Room Air 07/07/22 18:00 07/07/22 18:37 07/07/22 18:39 Temperature Pulse Rate 124 H 123 H Respiratory Rate Blood Pressure 134/68 Pulse Oximetry 95 99 Oxygen Delivery Method 07/07/22 18:39 07/07/22 19:00 07/07/22 19:00 Temperature Pulse Rate 125 H 124 H Respiratory Rate 27 H 25 H Blood Pressure 147/91 H Pulse Oximetry 96 96 Oxygen Delivery Method 07/07/22 19:30 07/07/22 19:31 07/07/22 19:31 Temperature Pulse Rate 124 H 125 H Respiratory Rate 21 24 Blood Pressure 143/84 H Pulse Oximetry 93 95 Oxygen Delivery Method Room Air MDM - Nausea/Vomiting/Diarrhea Lab Data 07/07/22 15:43 07/07/22 15:43 Labs: Lab Results 07/07/22 07/07/22 07/07/22 Range/Units 15:43 15:43 15:43 WBC 6.6 (4.5-11.0) X10^3/uL RBC 4.12 (4.0-5.2) X10^6/uL Hgb 11.7 L (12.0-16.0) g/dL Hct 35.2 L (36-46) % MCV 85.4 (80-100) fL MCH 28.5 (26-34) PG MCHC 33.3 (30-36) % RDW 13.5 (11.6-14.8) % Plt Count 323 (150-400) X10^3/uL Neut % (Auto) 63.9 (50-75) % Lymph % (Auto) 23.8 L (25-40) % [place] % (Auto) 10.2 (3-14) % Eos % (Auto) 0.8 L (2-4) % Baso % (Auto) 1.3 (0-2) % Neut # (Auto) 4200 (0991-9064) /uL Lymph # (Auto) 1600 (4214-2257) /uL [place] # (Auto) 700 (0-900) /uL Eos # (Auto) 100 (0-450) /uL Baso # (Auto) 100 (0-100) /uL D-Dimer 377 (<500) ng/ml Sodium 135 L (137-145) mmol/L Potassium 4.0 (3.4-5.1) mmol/L Chloride 101 (98-107) mmol/L Carbon Dioxide 26 (22-32) mmol/L BUN 13 (7-17) mg/dL Creatinine 0.57 (0.52-1.04) mg/dL Estimated GFR > 60 (>60) mL/min BUN/Creatinine Ratio 22.8 H (6-22) Glucose 155 H (80-110) mg/dL Lactate (0.7-2.1) mmol/L Calcium 8.0 L (8.4-10.2) mg/dL Total Bilirubin 1.1 (0.2-1.3) mg/dL AST 28 (14-36) IU/L ALT 28 (<35) IU/L Alkaline Phosphatase 90 (38-126) U/L Total Creatine Kinase 148 H (30-135) U/L CK-MB (CK-2) 4.24 H (<2.37) ng/mL CK-MB (CK-2) Rel Index 2.9 (1.5-5.0) % Troponin I 0.031 (0.01-0.034) ng/mL NT-Pro-B Natriuret Pep 6340 H (<125) pg/mL Total Protein 6.4 (6.3-8.2) g/dL Albumin 3.7 (3.5-5.0) g/dL Globulin 2.7 (1.7-4.1) g/dL Albumin/Globulin Ratio 1.4 (1.0-2.8) TSH (0.47-4.68) uIU/mL Urine Color Urine Appearance Urine pH (4.5-8.0) Ur Specific [place] (1.000-1.035) Urine Protein (Negative) Urine Glucose (UA) (Negative) g/dL Urine Ketones (NEGATIVE) Urine Occult Blood (Negative) Urine Nitrate (Negative) Urine Bilirubin (NEGATIVE) Urine Urobilinogen (0.2) E.U./dL Ur Leukocyte Esterase (NEGATIVE) Urine RBC (0-5/HPF) Urine WBC (0-5/HPF) Ur Squamous Epith Cells (0-5/HPF) Ur Transition Epith Cell (0-5/HPF) Urine Bacteria (None) Ur Culture Indicated? Micro UA Comment Stl C. cayetanensis PCR (Not Detect) Stool Rotavirus (PCR) (Not Detect) Stool Adenovirus (PCR) (Not Detect) Stool Astrovirus (PCR) (Not Detect) Stool Cryptosporidium PCR (Not Detect) Stl E.coli Shiga Tox PCR (Not Detect) St Sh/Enteroin Ecoli PCR (Not Detect) Stool E coli O157 PCR (Not Detect) Stl Enterotoxigenic E PCR (Not Detect) Stool EPEC (PCR) (Not Detect) Stl E. histolytica PCR (Not Detect) Stool Giardia Lamblia PCR (Not Detect) Stool Sapovirus (PCR) (Not Detect) Stl P. shigelloides PCR (Not Detect) St Y.enterocolitica PCR (Not Detect) Stool Vibrio (PCR) (Not Detect) Stl Vibrio cholerae PCR (Not Detect) Stl Enteroaggr Ecoli PCR (Not Detect) Stl Norovirus GI/GII PCR (Not Detect) U Opiates 300ng/mL cut (Negative) Ur Oxycodone Screen (Negative) Urine Methadone Screen (Negative) Ur Barbiturates Screen (Negative) U Tricyclic Antidepress (Negative) Ur Phencyclidine Scrn (Negative) Ur Amphetamines Screen (Negative) U Methamphetamines Scrn (Negative) Ur MDMA Scrn (Ecstasy) (Negative) U Benzodiazepines Scrn (Negative) Urine Cocaine Screen (Negative) U Marijuana (THC) Screen (Negative) Campylobacter (PCR) (Not Detect) C. difficile Tox (PCR) (Not Detect) SARS-CoV-2 (PCR) (Negative) Salmonella (PCR) (Not Detect) 07/07/22 07/07/22 07/07/22 Range/Units 15:43 15:43 15:43 WBC (4.5-11.0) X10^3/uL RBC (4.0-5.2) X10^6/uL Hgb (12.0-16.0) g/dL Hct (36-46) % MCV (80-100) fL MCH (26-34) PG MCHC (30-36) % RDW (11.6-14.8) % Plt Count (150-400) X10^3/uL Neut % (Auto) (50-75) % Lymph % (Auto) (25-40) % Aurora % (Auto) (3-14) % Eos % (Auto) (2-4) % Baso % (Auto) (0-2) % Neut # (Auto) (8874-3584) /uL Lymph # (Auto) (6222-2822) /uL Aurora # (Auto) (0-900) /uL Eos # (Auto) (0-450) /uL Baso # (Auto) (0-100) /uL D-Dimer (<500) ng/ml Sodium (137-145) mmol/L Potassium (3.4-5.1) mmol/L Chloride (98-107) mmol/L Carbon Dioxide (22-32) mmol/L BUN (7-17) mg/dL Creatinine (0.52-1.04) mg/dL Estimated GFR (>60) mL/min BUN/Creatinine Ratio (6-22) Glucose (80-110) mg/dL Lactate 1.2 (0.7-2.1) mmol/L Calcium (8.4-10.2) mg/dL Total Bilirubin (0.2-1.3) mg/dL AST (14-36) IU/L ALT (<35) IU/L Alkaline Phosphatase (38-126) U/L Total Creatine Kinase (30-135) U/L CK-MB (CK-2) (<2.37) ng/mL CK-MB (CK-2) Rel Index (1.5-5.0) % Troponin I (0.01-0.034) ng/mL NT-Pro-B Natriuret Pep (<125) pg/mL Total Protein (6.3-8.2) g/dL Albumin (3.5-5.0) g/dL Globulin (1.7-4.1) g/dL Albumin/Globulin Ratio (1.0-2.8) TSH 1.32 (0.47-4.68) uIU/mL Urine Color Urine Appearance Urine pH (4.5-8.0) Ur Specific [place] (1.000-1.035) Urine Protein (Negative) Urine Glucose (UA) (Negative) g/dL Urine Ketones (NEGATIVE) Urine Occult Blood (Negative) Urine Nitrate (Negative) Urine Bilirubin (NEGATIVE) Urine Urobilinogen (0.2) E.U./dL Ur Leukocyte Esterase (NEGATIVE) Urine RBC (0-5/HPF) Urine WBC (0-5/HPF) Ur Squamous Epith Cells (0-5/HPF) Ur Transition Epith Cell (0-5/HPF) Urine Bacteria (None) Ur Culture Indicated? Micro UA Comment Stl C. cayetanensis PCR (Not Detect) Stool Rotavirus (PCR) (Not Detect) Stool Adenovirus (PCR) (Not Detect) Stool Astrovirus (PCR) (Not Detect) Stool Cryptosporidium PCR (Not Detect) Stl E.coli Shiga Tox PCR (Not Detect) St Sh/Enteroin Ecoli PCR (Not Detect) Stool E coli O157 PCR (Not Detect) Stl Enterotoxigenic E PCR (Not Detect) Stool EPEC (PCR) (Not Detect) Stl E. histolytica PCR (Not Detect) Stool Giardia Lamblia PCR (Not Detect) Stool Sapovirus (PCR) (Not Detect) Stl P. shigelloides PCR (Not Detect) St Y.enterocolitica PCR (Not Detect) Stool Vibrio (PCR) (Not Detect) Stl Vibrio cholerae PCR (Not Detect) Stl Enteroaggr Ecoli PCR (Not Detect) Stl Norovirus GI/GII PCR (Not Detect) U Opiates 300ng/mL cut (Negative) Ur Oxycodone Screen (Negative) Urine Methadone Screen (Negative) Ur Barbiturates Screen (Negative) U Tricyclic Antidepress (Negative) Ur Phencyclidine Scrn (Negative) Ur Amphetamines Screen (Negative) U Methamphetamines Scrn (Negative) Ur MDMA Scrn (Ecstasy) (Negative) U Benzodiazepines Scrn (Negative) Urine Cocaine Screen (Negative) U Marijuana (THC) Screen (Negative) Campylobacter (PCR) (Not Detect) C. difficile Tox (PCR) (Not Detect) SARS-CoV-2 (PCR) Negative (Negative) Salmonella (PCR) (Not Detect) 07/07/22 07/07/22 07/07/22 Range/Units 18:20 18:20 18:20 WBC (4.5-11.0) X10^3/uL RBC (4.0-5.2) X10^6/uL Hgb (12.0-16.0) g/dL Hct (36-46) % MCV (80-100) fL MCH (26-34) PG MCHC (30-36) % RDW (11.6-14.8) % Plt Count (150-400) X10^3/uL Neut % (Auto) (50-75) % Lymph % (Auto) (25-40) % [place] % (Auto) (3-14) % Eos % (Auto) (2-4) % Baso % (Auto) (0-2) % Neut # (Auto) (4837-9554) /uL Lymph # (Auto) (5577-8378) /uL [place] # (Auto) (0-900) /uL Eos # (Auto) (0-450) /uL Baso # (Auto) (0-100) /uL D-Dimer (<500) ng/ml Sodium (137-145) mmol/L Potassium (3.4-5.1) mmol/L Chloride (98-107) mmol/L Carbon Dioxide (22-32) mmol/L BUN (7-17) mg/dL Creatinine (0.52-1.04) mg/dL Estimated GFR (>60) mL/min BUN/Creatinine Ratio (6-22) Glucose (80-110) mg/dL Lactate (0.7-2.1) mmol/L Calcium (8.4-10.2) mg/dL Total Bilirubin (0.2-1.3) mg/dL AST (14-36) IU/L ALT (<35) IU/L Alkaline Phosphatase (38-126) U/L Total Creatine Kinase (30-135) U/L CK-MB (CK-2) (<2.37) ng/mL CK-MB (CK-2) Rel Index (1.5-5.0) % Troponin I (0.01-0.034) ng/mL NT-Pro-B Natriuret Pep (<125) pg/mL Total Protein (6.3-8.2) g/dL Albumin (3.5-5.0) g/dL Globulin (1.7-4.1) g/dL Albumin/Globulin Ratio (1.0-2.8) TSH (0.47-4.68) uIU/mL Urine Color Yellow Urine Appearance Clear Urine pH 6.0 (4.5-8.0) Ur Specific [place] 1.010 (1.000-1.035) Urine Protein Negative (Negative) Urine Glucose (UA) Negative (Negative) g/dL Urine Ketones Negative (NEGATIVE) Urine Occult Blood Negative (Negative) Urine Nitrate Negative (Negative) Urine Bilirubin Negative (NEGATIVE) Urine Urobilinogen 1.0 (0.2) E.U./dL Ur Leukocyte Esterase Negative (NEGATIVE) Urine RBC 0-1/hpf (0-5/HPF) Urine WBC 0-1/hpf (0-5/HPF) Ur Squamous Epith Cells 10-30 /hpf H (0-5/HPF) Ur Transition Epith Cell 1-5/hpf (0-5/HPF) Urine Bacteria Few (2-10) H (None) Ur Culture Indicated? Cult not indicated Micro UA Comment Clue cells present Stl C. cayetanensis PCR Not detected (Not Detect) Stool Rotavirus (PCR) Not detected (Not Detect) Stool Adenovirus (PCR) Not detected (Not Detect) Stool Astrovirus (PCR) Not detected (Not Detect) Stool Cryptosporidium PCR Not detected (Not Detect) Stl E.coli Shiga Tox PCR Not detected (Not Detect) St Sh/Enteroin Ecoli PCR Not detected (Not Detect) Stool E coli O157 PCR Not detected (Not Detect) Stl Enterotoxigenic E PCR Not detected (Not Detect) Stool EPEC (PCR) Not detected (Not Detect) Stl E. histolytica PCR Not detected (Not Detect) Stool Giardia Lamblia PCR Not detected (Not Detect) Stool Sapovirus (PCR) Not detected (Not Detect) Stl P. shigelloides PCR Not detected (Not Detect) St Y.enterocolitica PCR Not detected (Not Detect) Stool Vibrio (PCR) Not detected (Not Detect) Stl Vibrio cholerae PCR Not detected (Not Detect) Stl Enteroaggr Ecoli PCR Not detected (Not Detect) Stl Norovirus GI/GII PCR Not detected (Not Detect) U Opiates 300ng/mL cut Negative (Negative) Ur Oxycodone Screen Negative (Negative) Urine Methadone Screen Negative (Negative) Ur Barbiturates Screen Negative (Negative) U Tricyclic Antidepress Negative (Negative) Ur Phencyclidine Scrn Negative (Negative) Ur Amphetamines Screen Positive H (Negative) U Methamphetamines Scrn Positive H (Negative) Ur MDMA Scrn (Ecstasy) Negative (Negative) U Benzodiazepines Scrn Negative (Negative) Urine Cocaine Screen Negative (Negative) U Marijuana (THC) Screen Positive H (Negative) Campylobacter (PCR) Not detected (Not Detect) C. difficile Tox (PCR) Not detected (Not Detect) SARS-CoV-2 (PCR) (Negative) Salmonella (PCR) Not detected (Not Detect) [facility] Narrative Medical decision making narrative: [67] year old patient presents with diarrhea for month itchy skin Multiple etiologies for patient's symptoms considered including, but not limited to: [Flu, pneumonia, COVID, infectious diarrhea versus other] Prior Charts reviewed in our EMR Primary Historian: patient Labs reviewed and interpreted by myself: No leukocytosis or left shift, slight drop in hemoglobin to 11.7 Imaging reviewed: Slight hazy appearance to right lower lung Patient's symptoms improved over duration of stay with above-stated therapies. There is a slightly hazy appearance to right lung base, patient has no sputum production and no fever, other elements including elevated BNP suggestive of some pulmonary edema. Antibiotics not indicated at this time. Findings and discharge diagnosis discussed with patient/family followed by verbalization of understanding Return precautions discussed with patient/family whom verbalize understanding of diagnosis and plan Discharge Plan Departure Patient Disposition: Home Clinical Impression: Pulmonary edema, Diarrhea Instructions: Diarrhea Activity Restrictions/Additional Instructions: *You have been diagnosed with [diarrhea, fluid overload called pulmonary edema. The stool studies] do not show any organism that requires a specific intervention *What to do: *Please continue to take your regular medications as directed. [x ] New medication prescriptions sent to your pharmacy: [ [facility]] [ ] New medication written as a paper prescription [ ] No new medications given *Please follow up with your primary care provider in 2-3 days, call for an appointment. Let them know you were seen in the Emergency Department and that we ask that you be seen in follow up. We will electronically transmit a record of today's note if your PCP is in our system *If you do not have a primary care provider please contact the [facility] Resource line at [phone]. They will ask some questions about your medical history and help get you set up with a doctor in the community. *Return to Emergency Department if you should have any new, worsening or concerning symptoms, such as [fever greater than 101 F, shaking chills, worsening pain, persistent vomiting or other bothersome symptoms] Prescriptions: New furosemide [Lasix] 40 mg tablet 40 mg PO DAILY Qty: 7 0RF permethrin 5 % cream 1 applic topical Q14D Qty: 60 0RF Rx Instructions: apply second treatment 14 days after first treatment if live lice remain No Action fluticasone propionate 50 mcg/actuation spray,suspension 1 spray intranasal BID Qty: 16 3RF Rx Instructions: administer into each nostril atorvastatin [Lipitor] 20 mg tablet 20 mg PO QPM Qty: 90 0RF diazepam [Valium] 5 mg tablet 5 mg PO BID PRN (Reason: anxiety) Qty: 40 0RF meloxicam 7.5 mg tablet 7.5 mg PO DAILY PRN (Reason: pain, moderate) Qty: 30 0RF metoprolol succinate 50 mg tablet extended release 24 hr 50 mg PO DAILY Qty: 60 0RF Referrals: New Sabillon MD [Primary Care Provider] - Stand Alone Forms: Patient Portal/API
[2022-07-07 15:52] LABS: Add Manual Diff / Slide Review NO; Basophils Absolute Auto 100 /uL (0-100); Basophils Percent Auto 1.3 % (0-2); Eosinophils Absolute Auto 100 /uL (0-450); Eosinophils Percent Auto 0.8 % (2-4); Hematocrit 35.2 % (36-46); Hemoglobin 11.7 g/dL (12.0-16.0); Lymphocytes Absolute Auto 1600 /uL (1100-4500); Lymphocytes Percent Auto 23.8 % (25-40); Mean Corpuscular HGB Conc 33.3 % (30-36); Mean Corpuscular Hemoglobin 28.5 PG (26-34); Mean Corpuscular Volume 85.4 fL (80-100); Monocytes Absolute Auto 700 /uL (0-900); Monocytes Percent Auto 10.2 % (3-14); Neutrophils Absolute Auto 4200 /uL (1500-7000); Neutrophils Percent Auto 63.9 % (50-75); Platelet Count 323 X10^3/uL (150-400); Red Blood Cell Count 4.12 X10^6/uL (4.0-5.2); Red Cell Distribution Width 13.5 % (11.6-14.8); White Blood Cell Count 6.6 X10^3/uL (4.5-11.0)
[2022-07-07 16:01] LABS: D Dimer 377 ng/ml (<500)
[2022-07-07] MEDS: SODIUM CHLORIDE 0.9% 1,000 ML 1000 ML IV (16:05)
[2022-07-07 16:15] LABS: Alanine Aminotransferase 28 IU/L (<35); Albumin 3.7 g/dL (3.5-5.0); Albumin Globulin Ratio 1.4 (1.0-2.8); Alkaline Phosphatase 90 U/L (38-126); Aspartate Aminotransferase 28 IU/L (14-36); BUN Creatinine Ratio 22.8 (6-22); Bilirubin Total 1.1 mg/dL (0.2-1.3); Blood Urea Nitrogen 13 mg/dL (7-17); Carbon Dioxide 26 mmol/L (22-32); Chloride 101 mmol/L (98-107); Creatine Kinase 148 U/L (30-135); Estimated Glomerular Filt Rate > 60 mL/min (>60); Globulin 2.7 g/dL (1.7-4.1); Glucose 155 mg/dL (80-110); HEMOLYSIS 23 (0-50); Sodium 135 mmol/L (137-145); Total Protein 6.4 g/dL (6.3-8.2)
[2022-07-07 16:16] LABS: Lactate (Lactic Acid) 1.2 mmol/L (0.7-2.1)
[2022-07-07 16:27] LABS: NT-proBNP (BNP-Adult 18+) 6340 pg/mL (<125); Troponin I 0.031 ng/mL (0.01-0.034)
[2022-07-07 16:30] LABS: CKMB % Relative Index 2.9 % (1.5-5.0); Creatine Kinase MB 4.24 ng/mL (<2.37)
[2022-07-07 16:46] LABS: TSH w/ Reflex to FT4 1.32 uIU/mL (0.47-4.68)
[2022-07-07 17:17] LABS: COVID19 -Nasal RAPID Negative (Negative)
[2022-07-07 18:41] LABS: Appearance Urine UA CLEAR; Bilirubin Urine UA NEGATIVE (NEGATIVE); Color Urine UA YELLOW; Glucose Urine UA NEGATIVE (Negative); Ketones Urine UA NEGATIVE (NEGATIVE); Leukocyte Esterase Urine UA NEGATIVE (NEGATIVE); Nitrite Urine UA NEGATIVE (Negative); Occult Blood Urine UA NEGATIVE (Negative); Protein Urine UA NEGATIVE (Negative)
[2022-07-07 18:45] LABS: UR Morphine/Opiate cutoff 300 Negative (Negative); Ur Creatinine Normal (Normal); Ur Specific Gravity Normal (Normal); Urine Amphetamines Positive (Negative); Urine Barbiturates Negative (Negative); Urine Benzodiazepines Negative (Negative); Urine Cocaine Negative (Negative); Urine MDMA Negative (Negative); Urine Methadone Negative (Negative); Urine Methamphetamines Positive (Negative); Urine Oxycodone Negative (Negative); Urine Phencyclidine Negative (Negative); Urine Tetrahydrocannabinol Positive (Negative); Urine Tricyclic Antidepressant Negative (Negative); Urine pH Normal (Normal)
[2022-07-07 18:51] LABS: Bacteria Urine Few (2-10); Culture Indicated Urine Cult Not Indicated; RBC Urine 0-1/HPF (0-5/HPF); Squamous Epithelial Cell Urine 10-30 /HPF (0-5/HPF); Transitional Epi Cells Urine 1-5/HPF (0-5/HPF); WBC Urine 0-1/HPF (0-5/HPF)
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
[2022-07-07 19:57] LABS: Adenovirus F 40/41 Not Detected (Not Detect); Astrovirus Not Detected (Not Detect); Campylobacter Not Detected (Not Detect); Clostridium difficile toxin AB Not Detected (Not Detect); Cryptosporidium Not Detected (Not Detect); Cyclospora cayetanensis Not Detected (Not Detect); Entamoeba histolytica Not Detected (Not Detect); Enteroaggregative E.coli Not Detected (Not Detect); Enteropathogenic E.coli Not Detected (Not Detect); Enterotoxigenic E.coli It/st Not Detected (Not Detect); Giardia lamblia Not Detected (Not Detect); Norovirus GI/GII Not Detected (Not Detect); Plesiomonsa shigelloides Not Detected (Not Detect); Rotavirus A Not Detected (Not Detect); Salmonella Not Detected (Not Detect); Sapovirus Not Detected (Not Detect); Shiga-like toxin-prod E.coli Not Detected (Not Detect); Shigella/Enteroinvasive E.coli Not Detected (Not Detect); Vibrio Not Detected (Not Detect); Vibrio cholerae Not Detected (Not Detect); Yersinia enterocolitica Not Detected (Not Detect)
== END 2022-07-07 20:31 | disposition home or self-care (01) ==
PROVIDERS: Emergency Provider Emergency Medicine; PCP Family Medicine
DX: J81.1 Chronic pulmonary edema (principal); R19.7 Diarrhea, unspecified; R07.9 Chest pain, unspecified; Z20.822 Contact with and (suspected) exposure to COVID-19
CPT/HCPCS: 36415; 71045; 80053; 80305; 81001; 82550; 82553; 83605; 83880; 84443; 84484; 85025; 85379; 87507; 87635; 93005; 93010; 99284; C9803

== ENCOUNTER 2023-01-03 17:11 | Emergency (ER) | payer MEDICARE, MEDICAID, SELFPAY ==
[2023-01-03] VITALS (8 sets, daily range): BP systolic 116–143; BP diastolic 76–104; PULSE 134–139; RESP 18–22; TEMP 36.8; O2SAT 97–100; BMI 26.2
--- NOTE | 2023-01-03 17:23 | DI.RAD.S_ITS ---
PROCEDURE: XR CHEST 1V INDICATIONS: Shortness of breath TECHNIQUE: One view of the chest was acquired. COMPARISON: [facility], CR, XR CHEST 1V, 07/07/2022, 15:32. [facility], CR, XR CHEST 1V, 02/25/2021, 13:25. FINDINGS: Surgical changes and devices: None. Lungs and pleura: Lungs are clear. No pleural effusions or pneumothorax. Mediastinum: Mediastinal contours appear normal. Heart size is normal. Bones and chest wall: No suspicious bony lesions. Overlying soft tissues appear unremarkable. IMPRESSION: No acute pulmonary process. Dictated by: Reddy Jules M.D. on 01/03/2023 at 17:59 Approved by: Reddy Jules M.D. on 01/03/2023 at 18:00
[2023-01-03 18:31] LABS: Add Manual Diff / Slide Review NO; Basophils Absolute Auto 100 /uL (0-100); Basophils Percent Auto 0.9 % (0-2); Eosinophils Absolute Auto 0 /uL (0-450); Eosinophils Percent Auto 0.5 % (2-4); Hematocrit 37.2 % (36-46); Hemoglobin 12.2 g/dL (12.0-16.0); Lymphocytes Absolute Auto 1200 /uL (1100-4500); Lymphocytes Percent Auto 15.7 % (25-40); Mean Corpuscular HGB Conc 32.9 % (30-36); Mean Corpuscular Hemoglobin 27.3 PG (26-34); Mean Corpuscular Volume 83.1 fL (80-100); Monocytes Absolute Auto 700 /uL (0-900); Monocytes Percent Auto 8.6 % (3-14); Neutrophils Absolute Auto 5700 /uL (1500-7000); Neutrophils Percent Auto 74.3 % (50-75); Platelet Count 327 X10^3/uL (150-400); Red Blood Cell Count 4.47 X10^6/uL (4.0-5.2); Red Cell Distribution Width 15.8 % (11.6-14.8); White Blood Cell Count 7.7 X10^3/uL (4.5-11.0)
[2023-01-03 18:44] LABS: Lactate (Lactic Acid) 2.8 mmol/L (0.7-2.1)
[2023-01-03 18:45] LABS: Alanine Aminotransferase 197 IU/L (<35); Albumin 3.6 g/dL (3.5-5.0); Albumin Globulin Ratio 1.2 (1.0-2.8); Alkaline Phosphatase 100 U/L (38-126); Aspartate Aminotransferase 86 IU/L (14-36); BUN Creatinine Ratio 28.9 (6-22); Bilirubin Total 2.2 mg/dL (0.2-1.3); Blood Urea Nitrogen 24 mg/dL (7-17); Calcium 8.4 mg/dL (8.4-10.2); Carbon Dioxide 25 mmol/L (22-32); Chloride 91 mmol/L (98-107); Estimated Glomerular Filt Rate > 60 mL/min (>60); Globulin 3.1 g/dL (1.7-4.1); Glucose 136 mg/dL (80-110); HEMOLYSIS 18 (0-50); Potassium 3.6 mmol/L (3.4-5.1); Sodium 124 mmol/L (137-145); Total Protein 6.7 g/dL (6.3-8.2)
[2023-01-03 18:46] LABS: INR 1.7 (0.9-1.3); Prothrombin Time 19.3 SECONDS (10.1-12.7)
[2023-01-03 18:57] LABS: NT-proBNP (BNP-Adult 18+) 9390 pg/mL (<125); Troponin I 0.051 ng/mL (0.01-0.034)
[2023-01-03 20:03] LABS: Reflexed Lactate in 2 Hours Y
[2023-01-03] MEDS: FUROSEMIDE 40 MG/4 ML VIAL IV (20:27)
[2023-01-03 20:39] LABS: Lactate 2HR (Lactic Acid Rflx) 2.3 mmol/L (0.7-2.1)
--- NOTE | 2023-01-03 21:07 | PC.NURSE ---
Patient refused cardiac tech due to the bugs
[2023-01-03 21:30] LABS: Ur Creatinine Normal (Normal); Ur Specific Gravity Normal (Normal); Urine Tetrahydrocannabinol Positive (Negative); Urine pH Normal (Normal)
[2023-01-03 21:31] LABS: UR Morphine/Opiate cutoff 300 Negative (Negative); Urine Amphetamines Negative (Negative); Urine Barbiturates Negative (Negative); Urine Benzodiazepines Negative (Negative); Urine Cocaine Negative (Negative); Urine MDMA Negative (Negative); Urine Methadone Negative (Negative); Urine Methamphetamines Positive (Negative); Urine Oxycodone Negative (Negative); Urine Phencyclidine Negative (Negative); Urine Tricyclic Antidepressant Negative (Negative)
--- NOTE | 2023-01-03 23:02 | ED_ITS ---
HPI - SOB/Dyspnea General Chief Complaint: Shortness of Breath/Dyspnea Stated Complaint: fluid build up on abd Time Seen by Provider: 01/03/23 18:13 Source: patient Mode of arrival: EMS Limitations: no limitations History of Present Illness HPI Narrative: 67-year-old female daily smoker and uses methamphetamines daily with congestive heart failure and reported known ejection fraction of about 15% presents with a chief complaint of bilateral lower extremity swelling as well as shortness of breath. She admits to using meth as recently as earlier today as well as marijuana. She was seen and evaluated at [facility] yesterday. She states that she is had lower extremity swelling and increasing shortness of breath with exertion and lying flat. It is unclear if she has gained any weight she does not know. She states that she was given some Lasix in the emergency department yesterday and then discharged without a prescription. There was a report of a consultation with Cardiology stating that there was no indication for admission or transfer, her known EF is consistent with symptoms and she is unlikely to have any meaningful improvement until she changes her extracurricular activities. Related Data Previous Rx's Medication Instructions Recorded fluticasone propionate 50 1 spray intranasal BID #16 grams 04/02/21 mcg/actuation nasal spray,suspension atorvastatin 20 mg tablet (Lipitor) 20 mg PO QPM #90 tabs 05/11/21 diazepam 5 mg tablet (Valium) 5 mg PO BID PRN anxiety #40 tabs 05/14/21 meloxicam 7.5 mg tablet 7.5 mg PO DAILY PRN pain, moderate 06/08/21 #30 tabs metoprolol succinate 50 mg 50 mg PO DAILY #60 tabs 06/08/21 tablet,extended release 24 hr furosemide 40 mg tablet (Lasix) 40 mg PO DAILY #7 tabs 07/07/22 permethrin 5 % topical cream 1 applic topical Q14D 2 doses #60 07/07/22 grams furosemide 40 mg tablet (Lasix) 40 mg PO DAILY 5 days #5 tabs 01/04/23 permethrin 5 % topical cream 1 applic topical Q14D 2 doses #60 01/04/23 grams potassium chloride 20 mEq 20 meq PO BID #14 tabs 01/04/23 tablet,extended release Allergies Allergy/AdvReac Type Severity Reaction Status Date / Time aripiprazole [From Abilify] AdvReac Severe tremors Verified 07/07/22 15:42 aspirin AdvReac Mild ringing in Verified 07/07/22 15:42 ears Review of Systems Review of Systems Narrative: GENERAL: Denies chills, fatigue, malaise, fever, sweats. HEENT: Denies sinus pain, ear pain, sore throat, difficulty swallowing, dizziness. RESPIRATORY: See HPI CARDIOVASCULAR: See HPI GASTROINTESTINAL: Denies nausea, vomiting, abdominal pain, diarrhea, constipation, melena. : Denies dysuria, frequency, incontinence, hematuria, urinary retention. MUSCULOSKELETAL: denies weakness, joint pain, or bony pain SKIN: Denies rash, skin lesions, or other NEUROLOGIC: Denies weakness, headache, numbness, change in speech, confusion, seizures, incoordination. PSYCHIATRIC: No concerning psychosocial issues. 12 point review of systems is negative except for those stated above Patient History Medical History Anxiety Chronic back pain Colitis (~1983) Drug abuse, amphetamine type Fractures History of bipolar disorder Hypertension Hyperthyroidism (~1982) PTSD (post-traumatic stress disorder) Thyroid nodule (~2019) Surgical History Anesthesia Status post surgery (03/17/10) Status post surgery (03/17/10) Social History household members: family Smoking Status: Current every day smoker Tobacco: How many years used: 50 quit status: not considering quitting alcohol intake: current substance use type: former substance user (methamphetamine ), marijuana (as needed for anxiety ) and methamphetamine (former) Smoking Status: Current every day smoker tobacco type: cigarettes and vaping alcohol intake frequency: a few times a month Alcohol type: hard liquor Substance Use Type: marijuana and methamphetamine Exam Narrative Exam Narrative: GENERAL: [67] year old patient appears stated age. Well-developed patient, in mild distress. HEAD: Atraumatic. Normocephalic. EYES: Pupils equal round and reactive. Extraocular motions intact. No scleral icterus. No injection or drainage. ENT: Nose without bleeding, purulent drainage. Throat without erythema, tonsillar hypertrophy or exudate. Airway patent. NECK: Trachea midline. Non tender CARDIOVASCULAR: Tachycardic but regular rhythm without murmurs, gallops, or rubs. RESPIRATORY: Faint crackles bilateral bases, no hypoxemia, no increased work of breathing or use of accessory muscles GASTROINTESTINAL: Abdomen soft, non-tender, nondistended. EXTREMITIES: 1+ pitting edema bilateral lower extremity BACK: Nontender without deformity or crepitance. No flank tenderness. NEURO: AOx3. SKIN: No rash or erythema of visible areas Initial Vital Signs Initial Vital Signs: Vital Signs Temperature 98.3 F 01/03/23 17:13 Pulse Rate 139 H 01/03/23 17:13 Respiratory Rate 18 01/03/23 17:13 Blood Pressure 143/104 H 01/03/23 17:13 Pulse Oximetry 100 01/03/23 17:13 Oxygen Delivery Method Room Air 01/03/23 17:13 Course Orders Ordered: Discontinued Medications Al Hydrox/Mg Hydrox/Simethicone (Mag Hydrox/Alum/Simeth 30 Ml Udc) 30 ml PO NOW ONE Stop: 01/04/23 06:12 Last Admin: 01/04/23 06:14 Dose: 30 ml Documented By: LANDRY Furosemide (Furosemide 40 Mg/4 Ml Vial) 40 mg IV NOW ONE Stop: 01/03/23 19:08 Last Admin: 01/03/23 20:27 Dose: 40 mg Documented By: EVY Nicotine (Nicotine 14 Patch) 14 mg TOP NOW ONE Stop: 01/04/23 00:01 Last Admin: 01/04/23 00:09 Dose: 14 mg Documented By: LANDRY Potassium Chloride (Potassium Chloride 20 Meq/15 Ml Udc) 40 meq PO NOW ONE Stop: 01/04/23 05:44 Last Admin: 01/04/23 05:49 Dose: 40 meq Documented By: LANDRY Potassium Chloride (Potassium Chloride 20 Meq Tab) 40 meq PO NOW ONE Stop: 01/04/23 05:44 Last Admin: 01/04/23 05:51 Dose: 40 meq Documented By: LANDRY Reevaluation(s) Reevaluation #1: Patient has put out well over a L of dilute urine, resting comfortably, no increased work of breathing Vital Signs Vital signs: Vital Signs - 8 hr 01/04/23 00:12 01/04/23 00:12 01/04/23 00:12 Pulse Rate 131 H 138 H Respiratory Rate 20 18 Blood Pressure 105/63 105/63 Pulse Oximetry 99 99 Oxygen Delivery Method Room Air 01/04/23 02:30 01/04/23 05:56 Pulse Rate 112 H 131 H Respiratory Rate 18 16 Blood Pressure 111/70 123/74 Pulse Oximetry 94 100 Oxygen Delivery Method Room Air Room Air MDM - SOB/Dyspnea Lab Data 01/03/23 17:30 01/04/23 07:39 Labs: Lab Results 01/03/23 01/03/23 01/03/23 Range/Units 17:30 20:18 21:11 WBC 7.7 (4.5-11.0) X10^3/uL RBC 4.47 (4.0-5.2) X10^6/uL Hgb 12.2 (12.0-16.0) g/dL Hct 37.2 (36-46) % MCV 83.1 (80-100) fL MCH 27.3 (26-34) PG MCHC 32.9 (30-36) % RDW 15.8 H (11.6-14.8) % Plt Count 327 (150-400) X10^3/uL Neut % (Auto) 74.3 (50-75) % Lymph % (Auto) 15.7 L (25-40) % [place]ro % (Auto) 8.6 (3-14) % Eos % (Auto) 0.5 L (2-4) % Baso % (Auto) 0.9 (0-2) % Neut # (Auto) 5700 (3309-3793) /uL Lymph # (Auto) 1200 (4696-9812) /uL [place]fer[place] # (Auto) 700 (0-900) /uL Eos # (Auto) 0 (0-450) /uL Baso # (Auto) 100 (0-100) /uL PT 19.3 H (10.1-12.7) SECONDS INR 1.7 H (0.9-1.3) Sodium 124 L (137-145) mmol/L Potassium 3.6 (3.4-5.1) mmol/L Chloride 91 L (98-107) mmol/L Carbon Dioxide 25 (22-32) mmol/L BUN 24 H (7-17) mg/dL Creatinine 0.83 (0.52-1.04) mg/dL Estimated GFR > 60 (>60) mL/min BUN/Creatinine Ratio 28.9 H (6-22) Glucose 136 H (80-110) mg/dL Lactate 2.8 H 2.3 H (0.7-2.1) mmol/L Calcium 8.4 (8.4-10.2) mg/dL Total Bilirubin 2.2 H (0.2-1.3) mg/dL AST 86 H (14-36) IU/L ALT 197 H (<35) IU/L Alkaline Phosphatase 100 (38-126) U/L Total Creatine Kinase (30-135) U/L Troponin I 0.051 H (0.01-0.034) ng/mL NT-Pro-B Natriuret Pep 9390 H (<125) pg/mL Total Protein 6.7 (6.3-8.2) g/dL Albumin 3.6 (3.5-5.0) g/dL Globulin 3.1 (1.7-4.1) g/dL Albumin/Globulin Ratio 1.2 (1.0-2.8) U Opiates 300ng/mL cut Negative (Negative) Ur Oxycodone Screen Negative (Negative) Urine Methadone Screen Negative (Negative) Ur Barbiturates Screen Negative (Negative) U Tricyclic Antidepress Negative (Negative) Ur Phencyclidine Scrn Negative (Negative) Ur Amphetamines Screen Negative (Negative) U Methamphetamines Scrn Positive H (Negative) Ur MDMA Scrn (Ecstasy) Negative (Negative) U Benzodiazepines Scrn Negative (Negative) Urine Cocaine Screen Negative (Negative) U Marijuana (THC) Screen Positive H (Negative) 01/03/23 01/04/23 01/04/23 Range/Units 23:43 04:52 04:52 WBC (4.5-11.0) X10^3/uL RBC (4.0-5.2) X10^6/uL Hgb (12.0-16.0) g/dL Hct (36-46) % MCV (80-100) fL MCH (26-34) PG MCHC (30-36) % RDW (11.6-14.8) % Plt Count (150-400) X10^3/uL Neut % (Auto) (50-75) % Lymph % (Auto) (25-40) % [place]ferro % (Auto) (3-14) % Eos % (Auto) (2-4) % Baso % (Auto) (0-2) % Neut # (Auto) (9196-8485) /uL Lymph # (Auto) (3548-0529) /uL [place]ferro # (Auto) (0-900) /uL Eos # (Auto) (0-450) /uL Baso # (Auto) (0-100) /uL PT (10.1-12.7) SECONDS INR (0.9-1.3) Sodium 129 L (137-145) mmol/L Potassium 2.7 L* 2.9 L (3.4-5.1) mmol/L Chloride 91 L (98-107) mmol/L Carbon Dioxide 32 (22-32) mmol/L BUN 23 H (7-17) mg/dL Creatinine 0.79 (0.52-1.04) mg/dL Estimated GFR > 60 (>60) mL/min BUN/Creatinine Ratio 29.1 H (6-22) Glucose 136 H (80-110) mg/dL Lactate (0.7-2.1) mmol/L Calcium 8.1 L (8.4-10.2) mg/dL Total Bilirubin (0.2-1.3) mg/dL AST (14-36) IU/L ALT (<35) IU/L Alkaline Phosphatase (38-126) U/L Total Creatine Kinase 212 H (30-135) U/L Troponin I 0.041 H (0.01-0.034) ng/mL NT-Pro-B Natriuret Pep 8870 H (<125) pg/mL Total Protein (6.3-8.2) g/dL Albumin (3.5-5.0) g/dL Globulin (1.7-4.1) g/dL Albumin/Globulin Ratio (1.0-2.8) U Opiates 300ng/mL cut (Negative) Ur Oxycodone Screen (Negative) Urine Methadone Screen (Negative) Ur Barbiturates Screen (Negative) U Tricyclic Antidepress (Negative) Ur Phencyclidine Scrn (Negative) Ur Amphetamines Screen (Negative) U Methamphetamines Scrn (Negative) Ur MDMA Scrn (Ecstasy) (Negative) U Benzodiazepines Scrn (Negative) Urine Cocaine Screen (Negative) U Marijuana (THC) Screen (Negative) 01/04/23 Range/Units 07:39 WBC (4.5-11.0) X10^3/uL RBC (4.0-5.2) X10^6/uL Hgb (12.0-16.0) g/dL Hct (36-46) % MCV (80-100) fL MCH (26-34) PG MCHC (30-36) % RDW (11.6-14.8) % Plt Count (150-400) X10^3/uL Neut % (Auto) (50-75) % Lymph % (Auto) (25-40) % [place]ferro % (Auto) (3-14) % Eos % (Auto) (2-4) % Baso % (Auto) (0-2) % Neut # (Auto) (0077-2576) /uL Lymph # (Auto) (5276-6717) /uL [place]ferro # (Auto) (0-900) /uL Eos # (Auto) (0-450) /uL Baso # (Auto) (0-100) /uL PT (10.1-12.7) SECONDS INR (0.9-1.3) Sodium (137-145) mmol/L Potassium 4.1 D (3.4-5.1) mmol/L Chloride (98-107) mmol/L Carbon Dioxide (22-32) mmol/L BUN (7-17) mg/dL Creatinine (0.52-1.04) mg/dL Estimated GFR (>60) mL/min BUN/Creatinine Ratio (6-22) Glucose (80-110) mg/dL Lactate (0.7-2.1) mmol/L Calcium (8.4-10.2) mg/dL Total Bilirubin (0.2-1.3) mg/dL AST (14-36) IU/L ALT (<35) IU/L Alkaline Phosphatase (38-126) U/L Total Creatine Kinase (30-135) U/L Troponin I (0.01-0.034) ng/mL NT-Pro-B Natriuret Pep (<125) pg/mL Total Protein (6.3-8.2) g/dL Albumin (3.5-5.0) g/dL Globulin (1.7-4.1) g/dL Albumin/Globulin Ratio (1.0-2.8) U Opiates 300ng/mL cut (Negative) Ur Oxycodone Screen (Negative) Urine Methadone Screen (Negative) Ur Barbiturates Screen (Negative) U Tricyclic Antidepress (Negative) Ur Phencyclidine Scrn (Negative) Ur Amphetamines Screen (Negative) U Methamphetamines Scrn (Negative) Ur MDMA Scrn (Ecstasy) (Negative) U Benzodiazepines Scrn (Negative) Urine Cocaine Screen (Negative) U Marijuana (THC) Screen (Negative) MDM Narrative Medical decision making narrative: [67] year old patient presents with shortness of breath and swelling of her lower legs and abdomen Multiple etiologies for patient's symptoms considered including, but not limited to: [] CHF versus other Prior Charts reviewed in our EMR, records reviewed from [facility] yesterday. Patient had CT angio of the chest with and without which note no pulmonary embolism, bilateral lungs clear, evidence of right heart failure with a small amount of ascites Primary Historian: patient Labs reviewed and interpreted by myself: No leukocytosis or left shift, no signs of anemia, Na 124 (128 yesterday), initial lactate 2.8, down to 2.3, initial troponin 0.051 --> 0.041, BNP 8870. Imaging reviewed: No acute cardiopulmonary process Consultations: Discharge Plan Departure Patient Disposition: Home Clinical Impression: Acute CHF, Acute hypokalemia Instructions: DI for Heart Failure, DI for Hypokalemia Activity Restrictions/Additional Instructions: *You have been diagnosed with [acute exacerbation of CHF, methamphetamine use, hypokalemia] *What to do: *Please continue to take your regular medications as directed. [ x] New medication prescriptions sent to your pharmacy: [[facility] ] [ ] New medication written as a paper prescription [ ] No new medications given *Please follow up with your primary care provider in 2-3 days, call for an appointment. Let them know you were seen in the Emergency Department and that we ask that you be seen in follow up. We will electronically transmit a record of today's note if your PCP is in our system *If you do not have a primary care provider please contact the [facility] Resource line at [phone]. They will ask some questions about your medical history and help get you set up with a doctor in the community. *Return to Emergency Department if you should have any new, worsening or concerning symptoms, such as [fever greater than 101 F, shaking chills, worsening pain, persistent vomiting or other bothersome symptoms] Prescriptions: New furosemide [Lasix] 40 mg tablet 40 mg PO DAILY 5 Days Qty: 5 0RF potassium chloride 20 mEq tablet extended release 20 meq PO BID Qty: 14 0RF permethrin 5 % cream 1 applic topical Q14D Qty: 60 0RF Rx Instructions: apply second treatment 14 days after first treatment if live lice remain No Action fluticasone propionate 50 mcg/actuation spray,suspension 1 spray intranasal BID Qty: 16 3RF Rx Instructions: administer into each nostril atorvastatin [Lipitor] 20 mg tablet 20 mg PO QPM Qty: 90 0RF diazepam [Valium] 5 mg tablet 5 mg PO BID PRN (Reason: anxiety) Qty: 40 0RF meloxicam 7.5 mg tablet 7.5 mg PO DAILY PRN (Reason: pain, moderate) Qty: 30 0RF metoprolol succinate 50 mg tablet extended release 24 hr 50 mg PO DAILY Qty: 60 0RF furosemide [Lasix] 40 mg tablet 40 mg PO DAILY Qty: 7 0RF permethrin 5 % cream 1 applic topical Q14D Qty: 60 0RF Rx Instructions: apply second treatment 14 days after first treatment if live lice remain Referrals: New Sabillon MD [Primary Care Provider] - Stand Alone Forms: Patient Portal/API
[2023-01-04 00:03] LABS: Creatine Kinase 212 U/L (30-135)
[2023-01-04] MEDS: NICOTINE 14 PATCH 14 MG TOP (00:09)
[2023-01-04 00:12] VITALS: BP 105/63; PULSE 131; PULSE 138; RESP 18; RESP 20; O2SAT 99
[2023-01-04 00:16] LABS: NT-proBNP (BNP-Adult 18+) 8870 pg/mL (<125); Troponin I 0.041 ng/mL (0.01-0.034)
[2023-01-04 02:28] VITALS: BP 111/70
[2023-01-04 02:30] VITALS: BP 111/70; PULSE 112; RESP 18; O2SAT 94
[2023-01-04 05:29] LABS: BUN Creatinine Ratio 29.1 (6-22); Blood Urea Nitrogen 23 mg/dL (7-17); Calcium 8.1 mg/dL (8.4-10.2); Carbon Dioxide 32 mmol/L (22-32); Chloride 91 mmol/L (98-107); Estimated Glomerular Filt Rate > 60 mL/min (>60); Glucose 136 mg/dL (80-110); HEMOLYSIS < 15 (0-50); Sodium 129 mmol/L (137-145)
[2023-01-04 05:33] LABS: Potassium 2.7 mmol/L (3.4-5.1)
[2023-01-04] MEDS: POTASSIUM CHLORIDE 20 MEQ/15 ML UDC 40 MEQ PO (05:49)
[2023-01-04] MEDS: POTASSIUM CHLORIDE 20 MEQ TAB 40 MEQ PO (05:51)
[2023-01-04 05:56] VITALS: BP 123/74; PULSE 131; PULSE 145; RESP 16; O2SAT 100
[2023-01-04 05:58] VITALS: PULSE 145; O2SAT 99
[2023-01-04 06:00] VITALS: BP 123/74; RESP 20
[2023-01-04] MEDS: MAG HYDROX/ALUM/SIMETH 30 ML UDC PO (06:14)
[2023-01-04 07:17] LABS: HEMOLYSIS < 15 (0-50); Potassium 2.9 mmol/L (3.4-5.1)
[2023-01-04 08:03] LABS: HEMOLYSIS 17 (0-50); Potassium 4.1 mmol/L (3.4-5.1)
--- NOTE | 2023-01-04 08:25 | PC.NURSE ---
Pt up for discharge, pt notified, pt arguing with staff, repeatedly stating I'm too sick too leave, tell that to that hippie doctor, this always happens to me, pt requesting nurse to move around items in room then pt reports needing to use bathroom, pt ambulatory to bathroom with steady independent gait.
--- NOTE | 2023-01-04 08:42 | PC.NURSE ---
pt escorted to lobby with security. Pt ambulatory with belongings in hand.
--- NOTE | 2023-01-04 08:42 | PC.NURSE ---
Pt verbalized understanding of dc/fu instructions, signed form, refused VS assessment, allowed RN to remove PIV from L wrist, intact. Security standby due to pt behavior. pt adamantly requesting to speak with SW. Educated that SW arrives around 11am. Pt requesting to wait in lobby for SW. Okay by housekeeping worker gina.
== END 2023-01-04 08:46 | disposition home or self-care (01) ==
PROVIDERS: Emergency Medicine; Emergency Provider Emergency Medicine; PCP Family Medicine
DX: I50.9 Heart failure, unspecified (principal); E87.6 Hypokalemia; R06.02 Shortness of breath; Z79.899 Other long term (current) drug therapy
CPT/HCPCS: 36415; 71045; 80048; 80053; 80305; 82550; 83605; 83880; 84132; 84484; 85025; 85610; 93005; 93010; 96374; 99284; J1940

== ENCOUNTER 2023-01-14 19:57 | Emergency (ER) | payer MEDICARE, MEDICAID, SELFPAY ==
[2023-01-14] VITALS (19 sets, daily range): BP systolic 83–127; BP diastolic 61–91; PULSE 102–144; RESP 14–55; TEMP 36.7; O2SAT 96–100; BMI 29.9
--- NOTE | 2023-01-14 20:13 | DI.RAD.S_ITS ---
PROCEDURE: XR CHEST 1V INDICATIONS: chest pain TECHNIQUE: One view of the chest was acquired. COMPARISON: [facility], CR, XR CHEST 1V, 01/03/2023, 17:39. FINDINGS: Surgical changes and devices: None. Lungs and pleura: Lungs are clear. No pleural effusions or pneumothorax. Mediastinum: Mediastinal contours appear normal. Heart is moderately enlarged. Bones and chest wall: No suspicious bony lesions. Overlying soft tissues appear unremarkable. IMPRESSION: Moderate cardiomegaly. No pulmonary edema. Dictated by: Bj Harvey M.D. on 01/14/2023 at 20:52 Approved by: Bj Harvey M.D. on 01/14/2023 at 20:53
[2023-01-14 20:48] LABS: INR 1.6 (0.9-1.3); Prothrombin Time 18.5 SECONDS (10.1-12.7)
[2023-01-14 20:49] LABS: Add Manual Diff / Slide Review NO; Basophils Absolute Auto 100 /uL (0-100); Basophils Percent Auto 1.3 % (0-2); Eosinophils Absolute Auto 0 /uL (0-450); Eosinophils Percent Auto 0.9 % (2-4); Hematocrit 34.6 % (36-46); Hemoglobin 11.4 g/dL (12.0-16.0); Lymphocytes Absolute Auto 1200 /uL (1100-4500); Mean Corpuscular Hemoglobin 27.2 PG (26-34); Mean Corpuscular Volume 82.3 fL (80-100); Monocytes Absolute Auto 600 /uL (0-900); Monocytes Percent Auto 11.2 % (3-14); Neutrophils Absolute Auto 3400 /uL (1500-7000); Neutrophils Percent Auto 64.6 % (50-75); Platelet Count 202 X10^3/uL (150-400); Red Cell Distribution Width 16.9 % (11.6-14.8); White Blood Cell Count 5.3 X10^3/uL (4.5-11.0)
[2023-01-14 20:51] LABS: PTT Partial Thromboplastin Tim 31 SECONDS (26-36)
[2023-01-14 20:53] LABS: Alanine Aminotransferase 58 IU/L (<35); Albumin 3.5 g/dL (3.5-5.0); Albumin Globulin Ratio 1.1 (1.0-2.8); Alkaline Phosphatase 81 U/L (38-126); Aspartate Aminotransferase 44 IU/L (14-36); BUN Creatinine Ratio 27.1 (6-22); Bilirubin Total 1.7 mg/dL (0.2-1.3); Blood Urea Nitrogen 23 mg/dL (7-17); Calcium 8.2 mg/dL (8.4-10.2); Carbon Dioxide 30 mmol/L (22-32); Chloride 94 mmol/L (98-107); Creatine Kinase 95 U/L (30-135); Estimated Glomerular Filt Rate > 60 mL/min (>60); Globulin 3.2 g/dL (1.7-4.1); Glucose 109 mg/dL (80-110); HEMOLYSIS < 15 (0-50); Lipase 302 U/L (23-300); Magnesium 1.5 mg/dL (1.6-2.3); Potassium 3.2 mmol/L (3.4-5.1); Sodium 132 mmol/L (137-145); Total Protein 6.7 g/dL (6.3-8.2)
[2023-01-14 20:54] LABS: Influenza A - CEPHEID Flu A NEGATIVE (NEGATIVE); Influenza B - CEPHEID Flu B NEGATIVE (NEGATIVE); Respiratory Syncytial Virus Negative (Negative)
--- NOTE | 2023-01-14 20:55 | ED.CHESTPAIN ---
HPI - Chest Pain General Chief Complaint: Chest Pain Stated Complaint: sob Time Seen by Provider: 01/14/23 20:15 Source: patient and EMS Mode of arrival: EMS Limitations: no limitations History of Present Illness HPI narrative: Patient is a 67-year-old female. Brought in by EMS for evaluation of shortness of breath. It is somewhat difficult to obtain an exact HPI review of systems from the patient. She is very tangential with her speaking. She mumbles quite a bit. Will not directly answer questions. Apparently she is been feeling short of breath for the past couple days. She is having lower extremity swelling. Occasionally feels palpitations. No chest pain. She states that she should be on Lasix. She frequently references being admitted to the hospital earlier this year at an outside facility where she stayed? for 1 month? she was told that she needed to be on Lasix since then. She also states she was recently had a another outside local facility. Was not admitted to the hospital. Apparently she is been to this facility in the past. She talks about only taking medications that were prescribed by this facility although she should be on other medications. She reports no history of atrial fibrillation. He was told that she needed to follow-up with her human resources services specialist but has yet to do so because she states that the person who was supposed to be taking her to this appointment ?was late? and then they had an argument so now she does not have a ride. She is a prescription for metoprolol but does not take this medication. She is not on anticoagulation. She did tell nursing staff that she occasionally uses methamphetamine. Unsure when the last time she used this medication. Potentially has been fairly recently. Related Data Previous Rx's Medication Instructions Recorded fluticasone propionate 50 1 spray intranasal BID #16 grams 04/02/21 mcg/actuation nasal spray,suspension atorvastatin 20 mg tablet (Lipitor) 20 mg PO QPM #90 tabs 05/11/21 diazepam 5 mg tablet (Valium) 5 mg PO BID PRN anxiety #40 tabs 05/14/21 meloxicam 7.5 mg tablet 7.5 mg PO DAILY PRN pain, moderate 06/08/21 #30 tabs metoprolol succinate 50 mg 50 mg PO DAILY #60 tabs 06/08/21 tablet,extended release 24 hr furosemide 40 mg tablet (Lasix) 40 mg PO DAILY #7 tabs 07/07/22 permethrin 5 % topical cream 1 applic topical Q14D 2 doses #60 07/07/22 grams permethrin 5 % topical cream 1 applic topical Q14D 2 doses #60 01/04/23 grams potassium chloride 20 mEq 20 meq PO BID #14 tabs 01/04/23 tablet,extended release apixaban 5 mg tablet (Eliquis) 5 mg PO BID #60 tabs 01/15/23 metoprolol succinate 50 mg 50 mg PO DAILY #30 tabs 01/15/23 tablet,extended release 24 hr Allergies Allergy/AdvReac Type Severity Reaction Status Date / Time aripiprazole [From Abilify] AdvReac Severe tremors Verified 07/07/22 15:42 aspirin AdvReac Mild ringing in Verified 07/07/22 15:42 ears Review of Systems Constitutional Comments: Denies fevers Cardiovascular Cardiovascular: Reports dyspnea Comments: No chest pain but does occasionally have palpitations Respiratory Respiratory: Reports dyspnea Gastrointestinal Comments: Denies abdominal pain or nausea vomiting Musculoskeletal Comments: Endorses lower extremity swelling Integumentary/Breasts Skin/Breast: Reports system reviewed and no additional complaints, except as documented Patient History Medical History Hypertension PTSD (post-traumatic stress disorder) History of bipolar disorder Fractures Chronic back pain Colitis (~1983) Thyroid nodule (~2019) Hyperthyroidism (~1982) Anxiety Drug abuse, amphetamine type Surgical History Anesthesia Status post surgery (03/17/10) Status post surgery (03/17/10) Social History household members: family Smoking Status: Current every day smoker Tobacco: How many years used: 50 quit status: not considering quitting alcohol intake: current substance use type: former substance user (methamphetamine ), marijuana (as needed for anxiety ) and methamphetamine (former) Smoking Status: Current every day smoker tobacco type: cigarettes and vaping alcohol intake frequency: a few times a month Alcohol type: hard liquor Substance Use Type: marijuana and methamphetamine Exam Initial Vital Signs Initial Vital Signs: Vital Signs Temperature 98.1 F 01/14/23 19:56 Pulse Rate 144 H 01/14/23 19:56 Respiratory Rate 32 H 01/14/23 19:56 Blood Pressure 127/91 H 01/14/23 19:56 Pulse Oximetry 99 01/14/23 19:56 Oxygen Delivery Method Room Air 01/14/23 19:56 Const General: cooperative, anxious, disheveled and No ill appearing HENMT Head: normal to inspection and normocephalic Resp Effort & Inspection: normal respiratory effort Auscultation: clear to auscultation bilaterally Cardio Rate: tachycardic Rhythm: regular rhythm GI Inspection: normal to inspection and non-distended Skin General: no rashes or lesions noted Neuro General: patient alert, patient awake and moves all extremities Extrem General: capillary refill normal and edema Course Orders Ordered: ED Orders 01/14/23 22:41 EKG-12 Lead Stat 01/14/23 23:28 Troponin & CK Cardiac Panel Stat Discontinued Medications Diltiazem HCl (Diltiazem 5 Mg/Ml Sdv) 10 mg IV NOW ONE Stop: 01/14/23 20:56 Last Admin: 01/14/23 21:12 Dose: 10 mg Documented By: JACKELYN Furosemide 80 mg/ Sodium (Chloride) 58 mls @ 116 mls/hr IV NOW ONE Stop: 01/14/23 20:56 Last Infusion: 01/14/23 21:42 Dose: Infused Documented By: Admin: 01/14/23 21:12 Dose: 116 mls/hr Documented By: JACKELYN Metoprolol Tartrate (Metoprolol Ir 25 Mg Tablet) 25 mg PO NOW ONE Stop: 01/14/23 20:30 Last Admin: 01/14/23 21:12 Dose: 25 mg Documented By: JACKELYN Vital Signs Vital signs: Vital Signs - 8 hr 01/14/23 21:30 01/14/23 21:30 01/14/23 21:47 Pulse Rate 120 H 138 H Respiratory Rate 14 Blood Pressure 103/68 Pulse Oximetry 97 Oxygen Delivery Method 01/14/23 22:00 01/14/23 22:12 01/14/23 22:12 Pulse Rate 123 H 119 H Respiratory Rate 18 23 Blood Pressure 89/67 L Pulse Oximetry 97 98 Oxygen Delivery Method 01/14/23 22:15 01/14/23 22:30 01/14/23 22:30 Pulse Rate 122 H 108 H Respiratory Rate 26 H 17 Blood Pressure 94/67 Pulse Oximetry 100 97 Oxygen Delivery Method Room Air 01/14/23 22:45 01/14/23 22:45 01/14/23 23:00 Pulse Rate 102 H 103 H Respiratory Rate 21 18 Blood Pressure 83/65 L Pulse Oximetry 97 96 Oxygen Delivery Method 01/14/23 23:15 01/14/23 23:16 01/14/23 23:16 Pulse Rate 115 H 113 H Respiratory Rate 18 22 Blood Pressure 85/61 L Pulse Oximetry 98 98 Oxygen Delivery Method 01/14/23 23:30 01/14/23 23:45 01/15/23 00:00 Pulse Rate 114 H 114 H 107 H Respiratory Rate 20 24 22 Blood Pressure Pulse Oximetry 98 98 98 Oxygen Delivery Method 01/15/23 00:01 01/15/23 00:01 01/15/23 00:15 Pulse Rate 110 H 108 H Respiratory Rate 21 20 Blood Pressure 86/61 L 89/65 L Pulse Oximetry 97 98 Oxygen Delivery Method Room Air 01/15/23 00:15 01/15/23 00:30 01/15/23 00:45 Pulse Rate 104 H 117 H 113 H Respiratory Rate 20 49 H 39 H Blood Pressure Pulse Oximetry 97 98 98 Oxygen Delivery Method 01/15/23 01:00 Pulse Rate 114 H Respiratory Rate 19 Blood Pressure Pulse Oximetry 96 Oxygen Delivery Method Room Air MDM - Chest Pain Lab Data Attestation: I reviewed the patient's lab results. 01/14/23 20:24 01/14/23 20:24 Labs: Lab Results 01/14/23 01/14/23 01/14/23 Range/Units 20:07 20:24 23:28 WBC 5.3 (4.5-11.0) X10^3/uL RBC 4.20 (4.0-5.2) X10^6/uL Hgb 11.4 L (12.0-16.0) g/dL Hct 34.6 L (36-46) % MCV 82.3 (80-100) fL MCH 27.2 (26-34) PG MCHC 33.0 (30-36) % RDW 16.9 H (11.6-14.8) % Plt Count 202 (150-400) X10^3/uL Neut % (Auto) 64.6 (50-75) % Lymph % (Auto) 22.0 L (25-40) % [place] % (Auto) 11.2 (3-14) % Eos % (Auto) 0.9 L (2-4) % Baso % (Auto) 1.3 (0-2) % Neut # (Auto) 3400 (6555-3383) /uL Lymph # (Auto) 1200 (5399-6412) /uL [place] # (Auto) 600 (0-900) /uL Eos # (Auto) 0 (0-450) /uL Baso # (Auto) 100 (0-100) /uL PT 18.5 H (10.1-12.7) SECONDS INR 1.6 H (0.9-1.3) APTT 31 (26-36) SECONDS Sodium 132 L (137-145) mmol/L Potassium 3.2 L (3.4-5.1) mmol/L Chloride 94 L (98-107) mmol/L Carbon Dioxide 30 (22-32) mmol/L BUN 23 H (7-17) mg/dL Creatinine 0.85 (0.52-1.04) mg/dL Estimated GFR > 60 (>60) mL/min BUN/Creatinine Ratio 27.1 H (6-22) Glucose 109 (80-110) mg/dL Calcium 8.2 L (8.4-10.2) mg/dL Magnesium 1.5 L (1.6-2.3) mg/dL Total Bilirubin 1.7 H (0.2-1.3) mg/dL AST 44 H (14-36) IU/L ALT 58 H (<35) IU/L Alkaline Phosphatase 81 (38-126) U/L Total Creatine Kinase 95 96 (30-135) U/L Troponin I 0.049 H 0.045 H (0.01-0.034) ng/mL NT-Pro-B Natriuret Pep 8530 H (<125) pg/mL Total Protein 6.7 (6.3-8.2) g/dL Albumin 3.5 (3.5-5.0) g/dL Globulin 3.2 (1.7-4.1) g/dL Albumin/Globulin Ratio 1.1 (1.0-2.8) Lipase 302 H (23-300) U/L SARS-CoV-2 (PCR) Negative (Negative) Influenza A (RT-PCR) Flu a negative (NEGATIVE) Influenza B (RT-PCR) Flu b negative (NEGATIVE) RSV (PCR) Negative (Negative) Urine Dip Bedside Urine Glucose Negative Bedside Urine Bilirubin - Negative Bedside Urine Ketone - Negative Urine Specific [place] 1.010 Bedside Urine Occult Blood - Negative Bedside Urine pH 6.0 Bedside Urine Protein - Negative Bedside Urine Urobilinogen - Negative Bedside Urine Nitrite - Negative Bedside Urine Leukocytes - Negative Esterase Imaging Data Chest x-ray: Radiologist's Impression: PROCEDURE: XR CHEST 1V INDICATIONS: chest pain TECHNIQUE: One view of the chest was acquired. COMPARISON: [facility], , XR CHEST 1V, 01/03/2023, 17:39. FINDINGS: Surgical changes and devices: None. Lungs and pleura: Lungs are clear. No pleural effusions or pneumothorax. Mediastinum: Mediastinal contours appear normal. Heart is moderately enlarged. Bones and chest wall: No suspicious bony lesions. Overlying soft tissues appear unremarkable. IMPRESSION: Moderate cardiomegaly. No pulmonary edema. ECG Data Attestation: I personally reviewed and interpreted this ECG as follows: Interpretation: Atrial flutter Ventricular rate 144 Normal axis Normal QRS Nonspecific ST T wave changes Repeat EKG Atrial flutter Ventricular rate [address] T wave changes MDM Narrative Medical decision making narrative: No respiratory distress. She arrived tachycardic with an EKG that would be consistent with atrial flutter. She was given a dose of metoprolol which did improve her heart rate somewhat but then after dose of diltiazem her heart rate now consistently was in the 90s. She continues to be in a flutter. Chest x-ray is unremarkable. No signs of pulmonary edema. She is not hypoxic. She was given Lasix. She did diurese. She thinks maybe some improvement of her symptoms. She ambulated around the emergency department without issues. No signs of cellulitis. Had a discussion with the patient regarding her symptoms. I feel that she has quite a bit of uncertainty about the medications that she should be taking. Informed her that she should be taking her Lasix. I will prescribe metoprolol as she thinks she is been on this in the past but she does not have any prescriptions for this. This will most likely rate control her. Given the fact that she is an a flutter we will start her on anticoagulation. She was given a prescription for this. She has potassium supplementation. I did advise that she does need to follow-up with her human resources services specialist. She also needs follow-up with her primary doctor. She is now rate controlled, not hypoxic, not short of breath, it is tolerating her oral medications that the patient can be discharged home. She was given return precautions. Also have a very high suspicion that the patient's methamphetamine abuse his very detrimental to her health and until she stops using this illicit substance she will continue to have issues and potentially have problems making her appointments. I did discuss this with her. Discharge Plan Departure Patient Disposition: Home Clinical Impression: Atrial fibrillation, Peripheral edema Activity Restrictions/Additional Instructions: It is important that you contact your primary doctor and also your human resources services specialist for follow-up. I do recommend that you continue to take the Lasix/furosemide on a daily basis. I am going to start you on a medicine called metoprolol. To start taking that as directed. Also going to place you on a blood thinner because of the abnormal heart rhythm. This is important that you follow-up with your human resources services specialist. Prescriptions: New metoprolol succinate 50 mg tablet extended release 24 hr 50 mg PO DAILY Qty: 30 0RF Eliquis 5 mg tablet 5 mg PO BID Qty: 60 0RF No Action fluticasone propionate 50 mcg/actuation spray,suspension 1 spray intranasal BID Qty: 16 3RF Rx Instructions: administer into each nostril atorvastatin [Lipitor] 20 mg tablet 20 mg PO QPM Qty: 90 0RF diazepam [Valium] 5 mg tablet 5 mg PO BID PRN (Reason: anxiety) Qty: 40 0RF meloxicam 7.5 mg tablet 7.5 mg PO DAILY PRN (Reason: pain, moderate) Qty: 30 0RF metoprolol succinate 50 mg tablet extended release 24 hr 50 mg PO DAILY Qty: 60 0RF furosemide [Lasix] 40 mg tablet 40 mg PO DAILY Qty: 7 0RF permethrin 5 % cream 1 applic topical Q14D Qty: 60 0RF Rx Instructions: apply second treatment 14 days after first treatment if live lice remain potassium chloride 20 mEq tablet extended release 20 meq PO BID Qty: 14 0RF permethrin 5 % cream 1 applic topical Q14D Qty: 60 0RF Rx Instructions: apply second treatment 14 days after first treatment if live lice remain Referrals: New Sabillon MD [Primary Care Provider] - Stand Alone Forms: Patient Portal/API
[2023-01-14 20:58] LABS: COVID-19 CEPHEID 4-PLEX PCR Negative (Negative)
[2023-01-14 21:04] LABS: Troponin I 0.049 ng/mL (0.01-0.034)
[2023-01-14] MEDS: METOPROLOL IR 25 MG TABLET PO (21:12)
[2023-01-14] MEDS: FUROSEMIDE 80 MG in SODIUM CHLORIDE 0.9% 50 ML 116 MG IV (21:12)
[2023-01-14] MEDS: dilTIAZem 5 MG/ML SDV 10 MG IV (21:12)
[2023-01-14 22:01] LABS: NT-proBNP (BNP-Adult 18+) 8530 pg/mL (<125)
[2023-01-14 23:53] LABS: Creatine Kinase 96 U/L (30-135)
[2023-01-15] VITALS: PULSE 107; RESP 22; O2SAT 98
[2023-01-15 00:01] VITALS: BP 86/61; PULSE 110; RESP 21; O2SAT 97
[2023-01-15 00:06] LABS: Troponin I 0.045 ng/mL (0.01-0.034)
[2023-01-15 00:15] VITALS: BP 89/65; PULSE 104; PULSE 108; RESP 20; O2SAT 97; O2SAT 98
[2023-01-15 00:30] VITALS: PULSE 117; RESP 49; O2SAT 98
[2023-01-15 00:45] VITALS: PULSE 113; RESP 39; O2SAT 98
[2023-01-15 01:00] VITALS: PULSE 114; RESP 19; O2SAT 96
--- NOTE | 2023-01-15 01:49 | PC.NURSE ---
TOE [employer]IPPER note: Attempting to transport patient home. Patient came in via ambulance, patient called her family and friends. Patient called a few different numbers using out phone. Patient could not get a hold of anyone. Patient doesn't qualify for an ambulance ride home. Suggested we try in the morning.
== END 2023-01-15 05:24 | disposition home or self-care (01) ==
PROVIDERS: Emergency Provider Emergency Medicine; PCP Family Medicine
DX: I48.91 Unspecified atrial fibrillation (principal); R60.9 Edema, unspecified; R07.9 Chest pain, unspecified; Z79.01 Long term (current) use of anticoagulants; Z79.899 Other long term (current) drug therapy; Z20.822 Contact with and (suspected) exposure to COVID-19
CPT/HCPCS: 0241U; 36415; 71045; 80053; 81003; 82550; 83690; 83735; 83880; 84484; 85025; 85610; 85730; 93005; 96365; 96375; 99284; J1940